=== PATIENT | female | born 1985 | race Caucasian/White ===

== ENCOUNTER 2016-09-06 08:23 | Inpatient (IN) | payer OTHER ==
[~2016-09-06] VITALS: Ht 167.6 cm; Wt 79.4 kg
[~2016-09-06 08:23] MED LIST: ASPI81TA28 PO; ATOR10TA88 PO; CLON1TAB3 PO; FLUT1INH INH; FRS/40 PO; GLC/500 PO; IPRA1AER2 INH; IPRASOL4 INH; MAGN1CAP2 PO; MEDR150I IM; MONT1TAB3 PO; NXM/40 PO; OXYC1TAB3 PO; POTA20TA16 PO; PROM25TA9 PO; QUET1TAB34 PO; SERT-234 PO; TIZA4CAP PO; ZOLP10TA PO
[2016-09-06] MEDS ORDERED: ONDANSETRON INJ 2 MG/ML 2 ML VIAL IV PRN (08:45)
--- NOTE | 2016-09-06 08:50 | EMERGENCY ROOM VISIT NOTE ---
History Report prepared by Katrin: So Ludwig Under the Supervision of: Dr. Sean Diaz M.D. First contact with patient: 08:37 Chief Complaint: ABDOMINAL PAIN Stated Complaint: POSSIBLE PANCREATITIS-SEVERE ABD. PAIN History of Present Illness The patient is a 30 year old female who presents to the Emergency Room with complaints of persistent left upper quadrant abdominal pain that began three days ago. She currently rates her discomfort as a 10/10 in severity. The patient states that she has a history of pancreatitis and states that her pain today feels similar to her previous episodes of pancreatitis. She denies any history of heavy alcohol consumption. The patient states that the first time she had pancreatitis, it was attributed to gallstones. She states that her pain is worsened with eating and movement. The patient additionally associates chills and vomiting, but denies any diarrhea or fever. She notes that she has a pacemaker and additionally notes a history of a cholecystectomy. The patient states that she takes aspirin daily. Source of History: patient Onset: three days ago Position: abdomen (LUQ) Symptom Intensity: 10/10 Timing: other (persistent) Modifying Factors (Worsening): eating, movement Associated Symptoms: + chills, + vomiting, No diarrhea, No fevers Review of Systems All systems have been listed, reviewed, and are negative other than those previously mentioned. Please see Additional Medical History Sheet. Past Medical & Surgical Medical Problems: (1) Anxiety (2) Asthma (3) Bipolar disorder (4) Bronchitis (5) DM type 2 (diabetes mellitus, type 2) (6) Frequent UTI (7) H/O prolonged Q-T interval on ECG (8) H/O sinoatrial node dysfunction (9) History of congenital heart disease (10) history of pacemaker infection (11) History of pulmonary embolism (12) Hypertension (13) Kidney stones (14) Pacemaker (15) Paroxysmal atrial tachycardia (16) Pneumonia Surgical Problems: (1) H/O cone biopsy of cervix (2) History of cardiac cath (3) lower lumbar radiofrequency ablation (4) S/P ablation operation for arrhythmia (5) S/P cardiac catheterization (6) S/P laparoscopic cholecystectomy (7) S/P Mustard operation (8) S/p pacemaker insertion Family History Cancer Diabetes mellitus MOTHER SISTER FH: kidney disease Gallbladder disease Heart disease Hypertension Kidney stones Lung disease Social History Smoking Status: Never Smoker Smokeless Tobacco Use: No Alcohol Use: occasionally Drug Use: none Marital Status: in relationship Housing Status: lives with significant other Occupation Status: disabled Current/Historical Medications Scheduled Aspirin (Aspirin Ec), 81 MG PO DAILY Atorvastatin (Lipitor), 10 MG PO DAILY Clonazepam (Klonopin), 1 MG PO BID Esomeprazole Magnesium (Nexium), 40 MG PO DAILY Fluticasone Furoate-Vilanterol (Breo Ellipta), 1 PUFF INH DAILY Furosemide (Lasix), 20 MG PO DAILY Magnesium Oxide (Mg Supplement (Magnesium), 400 MG PO DAILY Medroxyprogesterone Acetate (C (Depo-Provera Contraceptiv), 1 DOSE IM [id number] Metformin Hcl (Glucophage), 500 MG PO BID Montelukast Sodium (Singulair), 10 MG PO HS Potassium Ext Rel (Klor-Con), 20 MEQ PO BID Quetiapine Fumarate (Seroquel), 100 MG PO HS Sertraline (Zoloft), 50 MG PO DAILY Zolpidem Tartrate (Ambien), 10 MG PO HS Scheduled PRN Ipratropium-Albuterol (Duoneb), 3 ML INH QID PRN for SOB/Wheezing Ipratropium-Albuterol (Combivent Respimat), 2 PUFFS INH QID PRN for SOB/Wheezing Tizanidine (Zanaflex), 4 MG PO TID PRN for PRN Allergies Coded Allergies: Ketorolac Tromethamine (Verified Allergy, Unknown, serotonin syndrome, ) Sulfa Antibiotics (Verified Allergy, Unknown, rash, 09/06/16) Tramadol (Verified Allergy, Unknown, serotonin syndrome, 09/06/16) Eggs or Egg-derived Products (Verified Adverse Reaction, Intermediate, GI SYMPTOMS, 09/06/16) Physical Exam Vital Signs Date Time Temp Pulse Resp B/P Pulse Ox O2 Delivery O2 Flow Rate FiO2 09/06/16 12:00 75 16 120/77 96 Room Air 09/06/16 10:45 60 16 99/63 96 Room Air 09/06/16 09:17 66 97/57 96 Room Air 09/06/16 09:11 97 Room Air 09/06/16 08:27 36.4 81 20 94/61 95 Room Air Physical Exam GENERAL: Patient awake, alert, oriented x 3. Patient follows commands. Patient does not appear toxic. Patient is adequately hydrated and well- nourished. SKIN: No erythema, pallor, cyanosis or rash HEENT: Normal head, pupils equal, reactive to light and accommodation. Mucous membranes are dry. Neck: Without adenopathy, no neck vein distention. CHEST WALL: Midline sternotomy scar. LUNGS: Clear to auscultation. No wheezes, no rales, no rhonchi. HEART: No murmurs. No gallops. No rubs ABDOMEN: Moderate tenderness over the epigastrium. Multiple upper abdominal scars, well healed, No masses, no rebound, no hepatomegaly or splenomegaly. EXTREMITIES: No signs of trauma. No pedal or pretibial edema. No calf or thigh tenderness. NEUROLOGIC: Cranial nerves II-XII within normal limits. No gross motor sensory function deficits. Medical Decision & Procedures ER Provider Diagnostic Interpretation: US results are interpretations by the radiologist and per my review. ABDOMINAL ULTRASOUND, RIGHT UPPER QUADRANT HISTORY: Severe abdominal pain. Pancreatitis. Evaluate for pseudocyst. COMPARISON: CT of the abdomen and pelvis July 04, 2016. FINDINGS: Hepatic echogenicity is increased. No hepatic lesions are identified. There is no biliary ductal dilatation following cholecystectomy. The pancreas is largely obscured due to overlying bowel gas. There is no right hydronephrosis. IMPRESSION: 1. No biliary ductal dilatation status post cholecystectomy. 2. Fatty liver. 3. Largely obscured pancreas. Electronically signed by: Jimmy Payton M.D. 09/06/2016 10:28 AM Dictated Date/Time: 09/06/2016 10:23 AM Laboratory Results 09/06/16 09:07 Red Blood Count 4.85, Mean Corpuscular Volume 79.6, Mean Corpuscular Hemoglobin 27.6, Mean Corpuscular Hemoglobin Concent 34.7, Mean Platelet Volume 9.8, Neutrophils (%) (Auto) 58.1, Lymphocytes (%) (Auto) 31.5, Monocytes (%) (Auto) 8.2, Eosinophils (%) (Auto) 1.5, Basophils (%) (Auto) 0.4, Neutrophils # (Auto) 5.91, Lymphocytes # (Auto) 3.20, Monocytes # (Auto) 0.83, Eosinophils # (Auto) 0.15, Basophils # (Auto) 0.04 09/06/16 09:07 Test 09/06/16 09:07 White Blood Count 10.16 K/uL (4.8-10.8) Red Blood Count 4.85 M/uL (4.2-5.4) Hemoglobin 13.4 g/dL (12.0-16.0) Hematocrit 38.6 % (37-47) Mean Corpuscular Volume 79.6 fL (80-100) Mean Corpuscular Hemoglobin 27.6 pg (25-34) Mean Corpuscular Hemoglobin Concent 34.7 g/dl (32-36) Platelet Count 282 K/uL (130-400) Mean Platelet Volume 9.8 fL (7.4-10.4) Neutrophils (%) (Auto) 58.1 % Lymphocytes (%) (Auto) 31.5 % Monocytes (%) (Auto) 8.2 % Eosinophils (%) (Auto) 1.5 % Basophils (%) (Auto) 0.4 % Neutrophils # (Auto) 5.91 K/uL (1.4-6.5) Lymphocytes # (Auto) 3.20 K/uL (1.2-3.4) Monocytes # (Auto) 0.83 K/uL (0.11-0.59) Eosinophils # (Auto) 0.15 K/uL (0-0.5) Basophils # (Auto) 0.04 K/uL (0-0.2) RDW Standard Deviation 48.4 fL (36.4-46.3) RDW Coefficient of Variation 16.7 % (11.5-14.5) Immature Granulocyte % (Auto) 0.3 % Immature Granulocyte # (Auto) 0.03 K/uL (0.00-0.02) Prothrombin Time 11.1 SECONDS (9.0-12.0) Prothromb Time International Ratio 1.0 (0.9-1.1) Activated Partial Thromboplast Time 25.4 SECONDS (21.0-31.0) Partial Thromboplastin Ratio 1.0 Anion Gap 16.0 mmol/L (3-11) Est Creatinine Clear Calc Drug Dose 93.8 ml/min Estimated GFR () 96.8 Estimated GFR (Non- 83.5 BUN/Creatinine Ratio 6.9 (10-20) Calcium Level 8.9 mg/dl (8.5-10.1) Total Bilirubin 0.3 mg/dl (0.2-1) Aspartate Amino Transf (AST/SGOT) 47 U/L (15-37) Alanine Aminotransferase (ALT/SGPT) 50 U/L (12-78) Alkaline Phosphatase 131 U/L (45-117) Total Protein 7.8 gm/dl (6.4-8.2) Albumin 4.2 gm/dl (3.4-5.0) Globulin 3.6 gm/dl (2.5-4.0) Albumin/Globulin Ratio 1.2 (0.9-2) Lipase 7709 U/L (73-393) Laboratory results as stated above per my review. Medications Administered Medications (Trade) Dose Ordered Sig/Veronica Route Start Time Stop Time Status Last Admin Dose Admin Hydromorphone HCl (Dilaudid Inj) 1 mg Q1HWA PRN IV 09/06/16 08:45 09/20/16 08:44 09/06/16 12:41 1 MG Ondansetron HCl 4 mg 4 mg Q1HWA PRN IV 09/06/16 08:45 10/06/16 08:44 09/06/16 09:13 4 MG Sodium Chloride (Nss 1000ml) 1,000 ml @ 1,000 mls/hr Q1H ONCE IV 09/06/16 09:30 09/06/16 10:29 DC 09/06/16 09:19 1,000 MLS/HR ED Course 0838: Past medical records reviewed. The patient was evaluated in room B11B. A complete history and physical examination was performed. 0845: Ordered Zofran Inj 4 mg IV, Dilaudid Inj 1 mg IV. 0930: Ordered Sodium Chloride 1000 ml @ 1000 mls/hr IV. 1110: I reevaluated the patient and she is still in pain. I discussed the exam findings with her and I discussed the treatment plan. She verbalized complete understanding and agreement She will be evaluated for further treatment. 1129: I discussed the patients case with Patrica Olmos. She is going to evaluate the patient for further treatment Medical Decision Nurses notes reviewed. Medical history sheet reviewed. Differential diagnosis includes but is not limited to: pancreatis, small bowel obstruction, pneumonia, pneumothorax, ectopic , appendicitis, peptic ulcer disease, gastroenteritis, dehydration, metabolic disorder. Multiple labs and imaging were performed. The patient's lipase is significantly elevated. The patient was given IV fluids and pain medication. Patient did improve but will require further evaluation in the hospital. I discussed care with the patient and with the hospitalist. Consults Time Called: 1117 Consulting Physician: Patrica Olmos Returned Call: [phone] I discussed the patients case with Patrica Olmos. She is going to evaluate the patient for further treatment Impression Primary Impression: Pancreatitis Additional Impression: Hypokalemia Scribe Attestation The scribe's documentation has been prepared under my direction and personally reviewed by me in its entirety. I confirm that the note above accurately reflects all work, treatment, procedures, and medical decision making performed by me. Departure Information Dispostion Being Evaluated By Hospitalist Prescriptions Sertraline (Zoloft) 100 Mg Tab 50 MG PO DAILY, #30 Prov: Yan Hanson MD 09/06/16 Clonazepam (Klonopin) 1 Mg Tab 1 MG PO BID, #30 Prov: Yan Hanson MD 09/06/16 Referrals Geovani Grace M.D. (PCP) Problem Qualifiers
[2016-09-06] MEDS ORDERED: MEDR150I IM (09:06)
[2016-09-06 09:14] LABS: BASO % 0.4 %; BASO ABS # 0.04 K/uL (0-0.2); COMPLETE YES; EOS % 1.5 %; HEMATOCRIT 38.6 % (37-47); IG% 0.3 %; LYMPH % 31.5 %; MEAN CELL VOLUME 79.6 fL (80-100); MEAN CORPUSCULAR HEMOGLOBIN 27.6 pg (25-34); MEAN CORPUSCULAR HGB CONC 34.7 g/dl (32-36); MEAN PLATELET VOLUME 9.8 fL (7.4-10.4); MONO % 8.2 %; NEUT % 58.1 %; PLATELET COUNT 282 K/uL (130-400); RED BLOOD COUNT 4.85 M/uL (4.2-5.4); WHITE BLOOD COUNT 10.16 K/uL (4.8-10.8)
[2016-09-06] MEDS: HYDROmorphone INJ 1 MG/ML SYR IV PRN ×6 (09:14→23:28)
[2016-09-06] MEDS ORDERED: SODIUM CHLORIDE 0.9% 1000ML 1,000 ML IV ONE (09:30)
[2016-09-06 09:33] LABS: BUN/CREATININE RATIO 6.9 (10-20); CALCIUM 8.9 mg/dl (8.5-10.1); CREATININE 0.91 mg/dl (0.60-1.20); POTASSIUM 2.8 mmol/L (3.5-5.1)
[2016-09-06 09:35] LABS: ALB/GLOB RATIO 1.2 (0.9-2); PROTHROMBIN TIME (PATIENT) 11.1 SECONDS (9.0-12.0)
--- NOTE | 2016-09-06 10:29 | DIAGNOSTIC IMAGING REPORT ---
ABDOMINAL ULTRASOUND, RIGHT UPPER QUADRANT HISTORY: Severe abdominal pain. Pancreatitis. Evaluate for pseudocyst. COMPARISON: CT of the abdomen and pelvis July 04, 2016. FINDINGS: Hepatic echogenicity is increased. No hepatic lesions are identified. There is no biliary ductal dilatation following cholecystectomy. The pancreas is largely obscured due to overlying bowel gas. There is no right hydronephrosis. IMPRESSION: 1. No biliary ductal dilatation status post cholecystectomy. 2. Fatty liver. 3. Largely obscured pancreas. Electronically signed by: Jimmy Payton M.D. 09/06/2016 10:28 AM Dictated Date/Time: 09/06/2016 10:23 AM
[2016-09-06] MEDS ORDERED: POTASSIUM CHLR 20 MEQ / WTR 40 MEQ in PREMIXED WATER 100 ML IV STA (12:10)
[2016-09-06] MEDS ORDERED: CLON1TAB3 PO (12:12)
[2016-09-06] MEDS ORDERED: SERT-234 PO (12:12)
[2016-09-06] MEDS ORDERED: IPRATROPIUM BROMIDE/ALBUTEROL respimat INH INH PRN (12:15)
[2016-09-06] MEDS ORDERED: ALBUT/IPRATROP 3MG/0.5MG NEB 3 ML VIAL INH PRN (12:15)
[2016-09-06] MEDS ORDERED: ALUMINUM/MAGNESIUM/SIMETH (MAALOX MAX) 30 ML UDC PO PRN (12:15)
[2016-09-06] MEDS ORDERED: ACETAMINOPHEN 325 MG TAB PO PRN (12:15)
[2016-09-06] MEDS ORDERED: LACTATED RINGER'S 1000ML 1,000 ML IV SCH (12:15)
[2016-09-06] MEDS ORDERED: OPTIRAY 320 IV PRN (12:45)
[2016-09-06] MEDS ORDERED: POTASSIUM CHLORIDE 10 MEQ TABCR PO ONE (13:00)
--- NOTE | 2016-09-06 13:33 | DIAGNOSTIC IMAGING REPORT ---
CT OF THE ABDOMEN AND PELVIS WITH CONTRAST CLINICAL HISTORY: Pancreatitis. Severe abdominal pain. COMPARISON STUDY: CT of the abdomen and pelvis July 04, 2016 and abdominal ultrasound performed earlier today. TECHNIQUE: Following IV administration of 118 mL of Optiray-320, axial images of the abdomen and pelvis were obtained from the lung bases to the proximal femurs. Images were reviewed in the axial, sagittal, and coronal planes. IV contrast was administered without complication. CT DOSE: 540.71 mGy.cm FINDINGS: Congenital anomalies within the heart are partially imaged on this exam. There are median sternotomy wires and epicardial pacer leads as well as post surgical findings within the heart. There is marked fatty infiltration of the liver. Moderate peripancreatic infiltration and fluid is noted which extends into the anterior pararenal spaces and the mesentery. The pancreas enhances homogeneously. There are no peripancreatic fluid collections. The main, left and right portal veins are patent. The splenic vein is patent. No pseudoaneurysm is identified on this non-CTA exam. There is no biliary or pancreatic ductal dilatation status post cholecystectomy. There is no evidence for a bowel obstruction. The caliber and wall thickness of small and large bowel are normal. There is trace fluid within the pelvis. Multiple compression deformities within the thoracic spine and lumbar spine are likely old. There is subtle sclerosis within the right femoral head. The spleen, adrenal glands and kidneys are normal. IMPRESSION: 1. Moderate peripancreatic infiltration and fluid consistent with acute pancreatitis. No evidence of pancreatic necrosis. No peripancreatic fluid collections. 2. Marked fatty infiltration of the liver. 3. No biliary ductal dilatation status post cholecystectomy. 4. 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 Electronically signed by: Jimmy Payton M.D. 09/06/2016 1:32 PM Dictated Date/Time: 09/06/2016 1:21 PM
[2016-09-06] MEDS: POTASSIUM CHLORIDE 10 MEQ / 100ML WTR IV SCH ×2 (14:00→17:21)
[2016-09-06 14:12] LABS: MANUAL MICROSCOPIC REQUIRED? NO; REVIEW REQ? NO; URINE APPEARANCE TURBID (CLEAR); URINE BILIRUBIN NEG (NEG); URINE COLOR YELLOW; URINE EPITHELIAL CELL AUTO >30 /lpf (0-5); URINE NITRITE NEG (NEG); URINE SPECIFIC GRAVITY > 1.045 (1.000-1.030); UROBILINOGEN NEG (NEG); ZZUR CULT IF INDIC CLEAN CATCH NO
[2016-09-06 14:45] VITALS: BP 121/78; PULSE 86; TEMP 36.5
[2016-09-06] MEDS ORDERED: DEXTROSE 50% 50 ML SYR IV PRN (15:30)
[2016-09-06] MEDS ORDERED: GLUCAGON FOR INJ 1 MG VIAL SQ PRN (15:30)
[2016-09-06] MEDS ORDERED: GLUCOSE 10 TABS/TUBE PO PRN (15:30)
[2016-09-06] MEDS ORDERED: CLONAZEPAM 1 MG TAB PO ONE (15:30)
[2016-09-06] MEDS ORDERED: GLUCOSE 40% GEL 15 GM TUBE PO PRN (15:30)
[2016-09-06 16:10] VITALS: O2SAT 96
[2016-09-06] MEDS: NSS + 20MEQ KCL 1000ML 1,000 ML IV SCH ×2 (16:48→23:28)
[2016-09-06] MEDS ORDERED: NURSING VERBAL MED ORDER ONE (17:00)
[2016-09-06] MEDS ORDERED: HydrALAZINE HCL 20 MG/ML VIAL IV. ONE (17:00)
[2016-09-06] MEDS ORDERED: HYDROmorphone INJ 0.5 MG/0.5 ML SYR IV ONE (17:15)
[2016-09-06] MEDS: INSULIN ASPART 100 UNITS/ML 3 ML PEN SC SCH (18:56)
[2016-09-06] MEDS: ONDANSETRON INJ 2 MG/ML 2 ML VIAL IV PRN (20:12)
[2016-09-06] MEDS ORDERED: HYDROmorphone INJ 1 MG/ML SYR IV ONE (21:00)
[2016-09-06] MEDS ORDERED: POTASSIUM CHLORIDE 20 MEQ TABCR PO SCH (21:00)
[2016-09-06] MEDS: MONTELUKAST SOD 10 MG TAB PO SCH (21:03)
[2016-09-06] MEDS: ZOLPIDEM TARTRATE 10 MG TAB PO SCH (21:03)
[2016-09-06] MEDS: CLONAZEPAM 1 MG TAB PO SCH (21:03)
[2016-09-06] MEDS: HEPARIN SOD 5000 UNIT/0.5 ML CARP SQ SCH (21:12)
--- NOTE | 2016-09-06 21:13 | HISTORY & PHYSICAL EXAMINATION ---
DATE OF ADMISSION: 09/06/2016 CHIEF COMPLAINT: Abdominal pain. 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 The patient says since last 2 days, she was having abdominal pain, but today morning it got worse, very severe in nature, radiating to back associated with nausea and decided to come to the ER and found to have lipase to be elevated. She is requiring significant pain medications. Currently, pain is under control with pain medication and resting comfortably and hemodynamically stable. Says has some mild pain radiating into lower chest. Denies any shortness of breath, has some dry cough, thinks maybe she has some low-grade fever, no chills, no headaches, no blurred vision, no diarrhea. Normal bladder movements.RECENTLY HAD ALL TOOTH EXTRACTED SECONDARY TO RISK OF ENDOCARDITIS. ALLERGIES: DOXEPIN, SULFONYLUREAS, TRAMADOL. PAST MEDICAL HISTORY: As mentioned above. PAST SURGICAL HISTORY: Ablation of the heart for SVT, cardiac heart catheterizations, right and left heart catheterization for congenital anomalies, dilatation and curettage for cervical dysplasia, epicardial electrode insertions, status post pacemaker by thoracotomy, replacement pacemaker generator, laparoscopic cholecystectomy, stent insertion main pulmonary artery, reconstruction of ankle joint, ICD pocket revision, 1 lead extraction of the pacemaker, repair of the great vessel transposition in 1984, all tooth extraction. MEDICATIONS: The patient is on Tessalon Perles 2 capsules p.o. t.i.d. p.r.n. cough, Ambien 10 mg p.o. daily at bedtime, Zanaflex 4 mg p.o. every 8 hours p.r.n., Combivent 2 puffs 4 times daily as needed, Brio Ellipta 1 puff daily, montelukast 10 mg p.o. daily, metformin 500 mg p.o. b.i.d., Depo-Provera every 3 months injection, magnesium oxide 400 mg p.o. daily, Klonopin 1 mg p.o. t.i.d. p.r.n., Zoloft 50 mg p.o. daily, Nexium 40 mg p.o. daily, atorvastatin 10 mg p.o. daily, Seroquel 100 mg p.o. at bedtime, Lasix 40 mg one day and 20 mg next day, potassium chloride 40 mg p.o. daily, DuoNeb 3 mL via nebulization 4 times a day, aspirin 81 mg p.o. daily. FAMILY HISTORY: Significant for father had depression, asthma, diabetes. Mother had thyroid disorder, diabetes. Sister has arthritis, asthma, diabetes. SOCIAL HISTORY: Former smoker, quit in 2014, smoked half pack a day for 10 years. Alcohol occasional. No drug use. Currently lives with his family. REVIEW OF SYMPTOMS: As per HPI. Rest of review of symptoms negative. PHYSICAL EXAMINATION: GENERAL: The patient is of moderate build, not in distress. VITAL SIGNS: Temperature 36.4, pulse 75, respiratory rate 16, blood pressure 120/77, oxygen 96% room air. HEAD, EYES, EARS, NOSE, AND THROAT: No pallor, no icterus. Pupils equal, round, and reactive to light. NECK: No JVD, no neck masses, no carotid bruits. CARDIOVASCULAR: S1, S2 heard, regular rate and rhythm, no murmur, no gallop. RESPIRATORY SYSTEM: Clear to auscultation bilaterally. No wheezing, no crackles. ABDOMEN: Soft. Tenderness in the epigastric region, some mild guarding, no rigidity. No distention. CENTRAL NERVOUS SYSTEM: Cranial nerves II-XII grossly intact. Nonfocal. EXTREMITIES: No edema. LABORATORY DATA: WBC 10, hemoglobin 13.4, hematocrit 38.6, platelets 282. Sodium 138, potassium 2.8, chloride 104, bicarbonate 18, BUN 16, CO2 18, BUN 6, creatinine 0.9, serum glucose 210, calcium 8.9, total bilirubin 0.8, AST 47, ALT 50, alkaline phosphatase 131, total protein 37.8, lipase 7,709. PT 11.1, INR 1, ABG 25.4, pancreatic ulcer found, largely obscured pancreas. No biliary ductal dilatation, status post cholecystectomy. ASSESSMENT AND PLAN: This is a 30-year-old female who presents with pancreatitis. 1. This is a 30-year-old female with past medical history significant for congenital heart disease, status post repair, sinoatrial node dysfunction status post pacemaker, pulmonary artery stent placement and status post ablation for SVT, bipolar disorder, generalized anxiety disorder, history of tobacco abuse, history of diabetes type 2, history of prolonged QT interval, history of pancreatitis in the past secondary to gallstone status post cholecystectomy who presents with abdominal pain. 2. Abdominal pain and lipase elevated, most likely acute pancreatitis, though pancreatic ultrasound did not show any dilatation of the common bile duct and pancreas was obscured on imaging study, HAS history of pancreatitis secondary to gallstones in the past status post cholecystectomy. We cannot do MRCP secondary to pacemaker. We will do CT abdomen and pelvis with contrast, place her n.p.o. except meds and aggressive fluids, IV pain medications, IV antiemetics. Follow the lipase levels and consult GI for further recommendations. 3. History of right-sided heart failure, most likely secondary to her congenital heart disease. We will hold Lasix because of the pancreatitis, 4. Hypokalemia. We will replace the potassium. 5. Diabetes. The patient says recently all her tooth were because of her heart disease and risk of endocarditis. And since she is only eating a soft diet and not following her regular diet .will check HbA1c levels . insulin sliding scale for now and hold the metformin. 6. History of bipolar disorder and generalized anxiety disorder. The patient is on Zoloft, which we will continue. We will continue Klonopin, but patient says that she read seroquel can cause pancreatitis and she wanted to hold it, will hold the Seroquel for now. We will monitor. 7. History of prolonged QT interval. We will get an EKG and avoid QT prolonging drugs. 8. History of gastroesophageal reflux disease. Will place on IV Protonix for now. 9. History of hyperlipidemia. holding Lipitor. 10. Deep venous thrombosis prophylaxis. SCDs and heparin subQ. 11. Disposition. Admission to medical floor. Expect to discharge home and follow with family doctor. LEVEL 1 FULL CODE. MTDD
[2016-09-06] MEDS: OXYCODONE/ACETAMINOPHEN 5-325 TAB PO PRN (22:26)
[2016-09-06] MEDS ORDERED: POTASSIUM CHLORIDE 20 MEQ TABCR PO ONE (22:30)
[2016-09-06 23:57] LABS: POTASSIUM 3.8 mmol/L (3.5-5.1)
[2016-09-06 23:58] LABS: MAGNESIUM 1.7 mg/dl (1.8-2.4)
[2016-09-07 00:09] VITALS: BP 142/85; PULSE 95; TEMP 37; O2SAT 92
[2016-09-07] MEDS: INSULIN ASPART 100 UNITS/ML 3 ML PEN SC SCH ×4 (00:23→18:00)
[2016-09-07] MEDS: HYDROmorphone INJ 1 MG/ML SYR IV PRN ×9 (01:34→21:39)
[2016-09-07] MEDS: OXYCODONE/ACETAMINOPHEN 5-325 TAB PO PRN ×3 (04:38→16:28)
[2016-09-07] MEDS: ONDANSETRON INJ 2 MG/ML 2 ML VIAL IV PRN ×2 (05:05→18:31)
[2016-09-07] MEDS: NSS + 20MEQ KCL 1000ML 1,000 ML IV SCH ×2 (05:13→11:22)
[2016-09-07 06:35] LABS: BASO % 0.2 %; BASO ABS # 0.02 K/uL (0-0.2); COMPLETE YES; EOS % 0.1 %; HEMATOCRIT 35.4 % (37-47); IG% 0.3 %; LYMPH % 12.5 %; LYMPH ABS # 1.49 K/uL (1.2-3.4); MEAN CELL VOLUME 81.2 fL (80-100); MEAN CORPUSCULAR HEMOGLOBIN 27.1 pg (25-34); MEAN CORPUSCULAR HGB CONC 33.3 g/dl (32-36); MEAN PLATELET VOLUME 9.8 fL (7.4-10.4); MONO % 6.6 %; NEUT % 80.3 %; PLATELET COUNT 282 K/uL (130-400); RED BLOOD COUNT 4.36 M/uL (4.2-5.4); WHITE BLOOD COUNT 11.89 K/uL (4.8-10.8)
[2016-09-07 07:04] LABS: BUN/CREATININE RATIO 7.1 (10-20); CALCIUM 8.6 mg/dl (8.5-10.1); CREATININE 0.75 mg/dl (0.60-1.20); MAGNESIUM 1.8 mg/dl (1.8-2.4); POTASSIUM 3.7 mmol/L (3.5-5.1)
[2016-09-07] MEDS: PROMETHAZINE HCL INJ 12.5 MG in SODIUM CHLORIDE 0.9% 50ML 50 ML IV PRN ×2 (08:55→16:05)
[2016-09-07] MEDS: SERTRALINE HCL 50 MG TAB PO SCH (08:56)
[2016-09-07] MEDS: MAGNESIUM OXIDE 400 MG TAB PO SCH (08:56)
[2016-09-07] MEDS: CLONAZEPAM 1 MG TAB PO SCH ×3 (08:56→20:29)
[2016-09-07] MEDS ORDERED: NON-FORMULARY MEDICATION (Fluticasone Furoate-Vilanterol (Breo Ellipta) 1 PUFF) INH SCH (09:00)
[2016-09-07] MEDS: HEPARIN SOD 5000 UNIT/0.5 ML CARP SQ SCH (09:04)
[2016-09-07 09:32] VITALS: BP 162/105; PULSE 111; TEMP 36.5; O2SAT 93
[2016-09-07] MEDS: PANTOprazole INJ 40 MG in SYRINGE 0 ML IV SCH (10:28)
[2016-09-07 11:31] VITALS: BP 125/63; PULSE 111
--- NOTE | 2016-09-07 12:06 | Gastrointestinal Consultation ---
Gastrointestinal Consultation Date of Consultation: Sep 07, 2016 Attending Physician: Dr. Hanson Consulting Physician: Dr. Lynne Reason for Consultation: pancreatitis History of Present Illness Patient is a 30 year old female with a complicated history of congenital heart disease s/p repain including PPM, DM, bipolar disorder and history of gallstone pancreatitis s/p cholecystectomy in 2010 who presented to the ER with nausea, vomiting and generalized abdominal pain. She has not had any problems with pancreatitis since GB removed, until 2 days ago. She drinks 1-2 beers about once a month. Had 1 beer on . Lipase on admission was 8000 with normal ALT, AST, TB. Alk phos was was very mildly elevated at 130. CT showed changes of acute pancreatitis. RUQ US showed normal sized ducts and fatty liver. She is NPO on IVF and PRN anti-emetics and analgesia. Pain is mildly better but still present. No nausea or vomiting today. No BM x 2-3 days. Past Medical/Surgical History Medical Problems: (1) Hypokalemia Status: Acute (2) Left flank pain Status: Acute (3) Non-cardiac chest pain Status: Acute (4) Non-cardiac chest pain Status: Acute (5) Pacemaker malfunction Status: Acute (6) Pancreatitis Status: Acute (7) Precordial chest pain Status: Acute (8) Pyelonephritis Status: Acute (9) Shortness of breath Status: Acute (10) Transaminitis Status: Acute (11) Upper respiratory infection Status: Acute Past Medical History: as noted in HPI Past Surgical History: as noted in HPI Family History Cancer Diabetes mellitus MOTHER SISTER FH: kidney disease Gallbladder disease Heart disease Hypertension Kidney stones Lung disease non-contributory Social History Smoking Status: Former Smoker Alcohol Use: occasionally Drug Use: none Marital Status: in relationship Housing Status: lives with significant other Occupation Status: disabled Allergies Coded Allergies: Ketorolac Tromethamine (Verified Allergy, Unknown, serotonin syndrome, ) Sulfa Antibiotics (Verified Allergy, Unknown, rash, 09/06/16) Tramadol (Verified Allergy, Unknown, serotonin syndrome, 09/06/16) Eggs or Egg-derived Products (Verified Adverse Reaction, Intermediate, GI SYMPTOMS, 09/06/16) Current Medications Home Meds and Scripts Medications Dose Route/Sig Max Daily Dose Days Date Category Dose Instructions Zoloft (Sertraline HCl) 100 Mg Tab 50 Mg PO DAILY 09/06/16 Rx Klonopin (Clonazepam) 1 Mg Tab 1 Mg PO BID 09/06/16 Rx Depo-Provera Contraceptiv (Medroxyprogesterone Acetate (C) 150 Mg/Ml Inj 1 Dose IM [id number] 09/06/16 Reported Combivent Respimat (Ipratropium-Albuterol) 1 Aer Aer 2 Puffs INH QID PRN 07/04/16 Reported Klor-Con (Potassium Chloride) 20 Meq Tabcr 20 Meq PO BID 30 12/09/15 Rx Lasix (Furosemide) 40 Mg Tab 20 Mg PO DAILY 30 12/09/15 Rx TAKE LASIX 20 MG DAILY WITH 40 MG PO DAILY EVERY OTHER DAY Seroquel (Quetiapine Fumarate) 100 Mg Tab 100 Mg PO HS 12/07/15 Reported Duoneb (Ipratropium-Albuterol) 3 Ml Nebu 3 Ml INH QID PRN 10/23/15 Reported Breo Ellipta (Fluticasone Furoate-Vilanterol) 1 Inh Inh 1 Puff INH DAILY 10/23/15 Reported Magnesium (Magnesium Oxide (Mg Supplement) 400 Mg Cap 400 Mg PO DAILY 09/05/15 Reported Singulair (Montelukast Sodium) 10 Mg Tab 10 Mg PO HS 08/30/15 Reported Glucophage (Metformin Hcl) 500 Mg Tab 500 Mg PO BID 08/14/15 Reported Nexium (Esomeprazole Magnesium) 40 Mg Cap 40 Mg PO DAILY 05/21/15 Reported Ambien (Zolpidem Tartrate) 10 Mg Tab 10 Mg PO HS 05/20/15 Reported Zanaflex (Tizanidine HCl) 4 Mg Cap 4 Mg PO TID PRN 05/20/15 Reported Aspirin Ec (Aspirin) 81 Mg Tab 81 Mg PO DAILY 05/20/15 Reported Lipitor (Atorvastatin Calcium) 10 Mg Tab 10 Mg PO DAILY 05/20/15 Reported Review of Systems 12 systems reviewed and negative except as noted Physical Exam Date Time Temp Pulse Resp B/P Pulse Ox O2 Delivery O2 Flow Rate FiO2 09/07/16 11:31 111 125/63 09/07/16 09:32 36.5 111 16 162/105 93 Room Air 09/07/16 08:00 Room Air 09/07/16 00:09 37.0 95 18 142/85 92 Room Air 09/06/16 23:30 Room Air 09/06/16 16:10 96 Room Air 09/06/16 14:45 36.5 86 18 121/78 Room Air 09/06/16 14:01 88 16 131/76 96 09/06/16 13:00 93 16 127/79 95 Room Air 09/06/16 12:00 75 16 120/77 96 Room Air General Appearance: WD/WN, no apparent distress Eyes: normal inspection, PERRL ENT: normal ENT inspection, hearing grossly normal, pharynx normal Neck: supple, no adenopathy, no JVD Respiratory/Chest: chest non-tender, lungs clear, normal breath sounds, no respiratory distress, no accessory muscle use Cardiovascular: regular rate, rhythm, no murmur Abdomen: normal bowel sounds, soft, + tenderness Extremities: normal range of motion, non-tender Neurologic/Psych: stitch bonding machine tender II-XII nml as tested, no motor/sensory deficits, alert, normal mood/affect, oriented x 3 Skin: normal color, no jaundice, warm/dry, no rash Laboratory Results Last 24 Hours Test 09/06/16 14:01 09/06/16 14:38 09/06/16 18:48 09/06/16 22:24 Urine Color YELLOW Urine Appearance TURBID Urine pH 7.0 Urine Specific [place] > 1.045 Urine Protein TRACE Urine Glucose (UA) 1+ Urine Ketones NEG Urine Occult Blood NEG Urine Nitrite NEG Urine Bilirubin NEG Urine Urobilinogen NEG Urine Leukocyte Esterase TRACE Urine WBC (Auto) 1-5 /hpf Urine RBC (Auto) 0-4 /hpf Urine Hyaline Casts (Auto) 0 /lpf Urine Epithelial Cells (Auto) >30 /lpf Urine Bacteria (Auto) NEG Bedside Glucose 164 mg/dl 189 mg/dl Potassium Level 3.8 mmol/L Magnesium Level 1.7 mg/dl Test 09/06/16 23:47 09/07/16 05:57 09/07/16 06:00 Bedside Glucose 163 mg/dl 172 mg/dl White Blood Count 11.89 K/uL Red Blood Count 4.36 M/uL Hemoglobin 11.8 g/dL Hematocrit 35.4 % Mean Corpuscular Volume 81.2 fL Mean Corpuscular Hemoglobin 27.1 pg Mean Corpuscular Hemoglobin Concent 33.3 g/dl Platelet Count 282 K/uL Mean Platelet Volume 9.8 fL Neutrophils (%) (Auto) 80.3 % Lymphocytes (%) (Auto) 12.5 % Monocytes (%) (Auto) 6.6 % Eosinophils (%) (Auto) 0.1 % Basophils (%) (Auto) 0.2 % Neutrophils # (Auto) 9.56 K/uL Lymphocytes # (Auto) 1.49 K/uL Monocytes # (Auto) 0.78 K/uL Eosinophils # (Auto) 0.01 K/uL Basophils # (Auto) 0.02 K/uL RDW Standard Deviation 51.3 fL RDW Coefficient of Variation 17.1 % Immature Granulocyte % (Auto) 0.3 % Immature Granulocyte # (Auto) 0.03 K/uL Sodium Level 144 mmol/L Potassium Level 3.7 mmol/L Chloride Level 111 mmol/L Carbon Dioxide Level 19 mmol/L Anion Gap 14.0 mmol/L Blood Urea Nitrogen 5 mg/dl Creatinine 0.75 mg/dl Est Creatinine Clear Calc Drug Dose 113.8 ml/min Estimated GFR () 122.2 Estimated GFR (Non- 105.5 BUN/Creatinine Ratio 7.1 Random Glucose 178 mg/dl Calcium Level 8.6 mg/dl Magnesium Level 1.8 mg/dl Total Bilirubin 0.5 mg/dl Direct Bilirubin 0.1 mg/dl Aspartate Amino Transf (AST/SGOT) 33 U/L Alanine Aminotransferase (ALT/SGPT) 41 U/L Alkaline Phosphatase 123 U/L Total Protein 7.3 gm/dl Albumin 4.0 gm/dl Lipase 3250 U/L Impression Patient is a 30 year old female with a history of gallstone pancreatitis in 2010 s/p cholecystectomy admitted with acute pancreatitis. No significant ETOH. LFTs essentially normal. She may have passed a stone. Plan Continue with consrvative management with NPO, INF, anti-emetics, and analgesia. She can not have MRCP secondary to PPM. May need outpatient EUS once she recovers from this acute episode +/- ERCP.
[2016-09-07 16:13] VITALS: BP 149/85; PULSE 129; TEMP 37.1; O2SAT 90
[2016-09-07 16:20] VITALS: O2SAT 96
[2016-09-07] MEDS: SODIUM CHLORIDE 0.9% 1000ML 1,000 ML IV SCH ×2 (17:08→20:32)
[2016-09-07] MEDS: ZOLPIDEM TARTRATE 10 MG TAB PO SCH (20:30)
[2016-09-07] MEDS: MONTELUKAST SOD 10 MG TAB PO SCH (20:30)
--- NOTE | 2016-09-07 20:30 | Progress Note ---
Internal Med Progress Note Date of Service: Sep 07, 2016. Provider Documentation: SUBJECTIVE: abdominal pain has improved has mil nausea no fever or chills OBJECTIVE: Vital Signs-as noted below Exam: General-no sign of distress Eyes-sclera non icteric ENT-dry oral mucosa Neck-no thyromegaly Lungs-CTA Heart-regular S1/S2 Abdomen-+ epigastric tenderness Extremities-no lower ext edema Neuro-no focal deficit Lab data as noted below. ASSESSMENT & PLAN: ACUTE PANCREATITIS : History of gallstone pancreatitis in 2010 s/p cholecystectomy admitted with acute pancreatitis. Lipase level 7 000-> improved to 300o with IVF No significant hx of ETOH. LFTs essentially normal. appreciate GI eval MRCP could not be done ( pt has pacemaker ) recommends cont supportive care with NPO , sips of water , ice cips IV hydration pain control follow lipase level till normalized gradual advance diet as tolerated will need out pt GI eval for EUS and possible ERCP if retained gall stone / sludge seen in biliary duct HX OF CONGENITAL HEART DISEASE : s/p surgical correction sick sinus syndrome with AV shannan dilatation s/p Permanent pacemaker placement FULL CODE DVT PROPHYLAXIS scd and teds ambulate DISPOSITION discharge home when medically stable Vital Signs: Date Time Temp Pulse Resp B/P Pulse Ox O2 Delivery O2 Flow Rate FiO2 09/07/16 16:13 37.1 129 16 149/85 90 Room Air 09/07/16 11:31 111 125/63 09/07/16 09:32 36.5 111 16 162/105 93 Room Air 09/07/16 08:00 Room Air 09/07/16 00:09 37.0 95 18 142/85 92 Room Air 09/06/16 23:30 Room Air Lab Results: Results Past 24 Hours Test 09/06/16 22:24 09/06/16 23:47 09/07/16 05:57 09/07/16 06:00 Range/Units Potassium Level 3.8 3.7 3.5-5.1 mmol/L Magnesium Level 1.7 1.8 1.8-2.4 mg/dl Bedside Glucose 163 172 70-90 mg/dl White Blood Count 11.89 4.8-10.8 K/uL Red Blood Count 4.36 4.2-5.4 M/uL Hemoglobin 11.8 12.0-16.0 g/dL Hematocrit 35.4 37-47 % Mean Corpuscular Volume 81.2 80-100 fL Mean Corpuscular Hemoglobin 27.1 25-34 pg Mean Corpuscular Hemoglobin Concent 33.3 32-36 g/dl Platelet Count 282 130-400 K/uL Mean Platelet Volume 9.8 7.4-10.4 fL Neutrophils (%) (Auto) 80.3 % Lymphocytes (%) (Auto) 12.5 % Monocytes (%) (Auto) 6.6 % Eosinophils (%) (Auto) 0.1 % Basophils (%) (Auto) 0.2 % Neutrophils # (Auto) 9.56 1.4-6.5 K/uL Lymphocytes # (Auto) 1.49 1.2-3.4 K/uL Monocytes # (Auto) 0.78 0.11-0.59 K/uL Eosinophils # (Auto) 0.01 0-0.5 K/uL Basophils # (Auto) 0.02 0-0.2 K/uL RDW Standard Deviation 51.3 36.4-46.3 fL RDW Coefficient of Variation 17.1 11.5-14.5 % Immature Granulocyte % (Auto) 0.3 % Immature Granulocyte # (Auto) 0.03 0.00-0.02 K/uL Sodium Level 144 136-145 mmol/L Chloride Level 111 98-107 mmol/L Carbon Dioxide Level 19 21-32 mmol/L Anion Gap 14.0 3-11 mmol/L Blood Urea Nitrogen 5 7-18 mg/dl Creatinine 0.75 0.60-1.20 mg/dl Est Creatinine Clear Calc Drug Dose 113.8 ml/min Estimated GFR () 122.2 Estimated GFR (Non- 105.5 BUN/Creatinine Ratio 7.1 10-20 Random Glucose 178 70-99 mg/dl Calcium Level 8.6 8.5-10.1 mg/dl Total Bilirubin 0.5 0.2-1 mg/dl Direct Bilirubin 0.1 0-0.2 mg/dl Aspartate Amino Transf (AST/SGOT) 33 15-37 U/L Alanine Aminotransferase (ALT/SGPT) 41 12-78 U/L Alkaline Phosphatase 123 45-117 U/L Total Protein 7.3 6.4-8.2 gm/dl Albumin 4.0 3.4-5.0 gm/dl Lipase 3250 73-393 U/L
[2016-09-07] MEDS ORDERED: CLONAZEPAM 1 MG TAB PO SCH (21:00)
[2016-09-07] MEDS ORDERED: HYDROmorphone INJ 1 MG/ML SYR IV STA (21:17)
[2016-09-07] MEDS ORDERED: HYDROmorphone INJ 2 MG/ML SYR/VIAL IV PRN (21:30)
[2016-09-07] MEDS ORDERED: NICOTINE 7 MG/24 HR TDSY TD ONE (23:37)
[2016-09-07] MEDS ORDERED: LORAZEPAM 2 MG/ML 1 ML VIAL IV ONE (23:37)
[2016-09-07] MEDS ORDERED: LORAZEPAM 2 MG/ML 1 ML VIAL IV PRN (23:45)
[2016-09-07] MEDS ORDERED: LEVALBUTEROL/IPRATROPIUM NEB INH STA (23:56)
[2016-09-07] MEDS ORDERED: LORAZEPAM 2 MG/ML 1 ML VIAL **EMERGENCY USE ONE (23:58)
[2016-09-08] VITALS (29 sets, daily range): BP systolic 106–165; BP diastolic 68–103; PULSE 77–132; TEMP 36.1–37.5; O2SAT 90–97; Ht 167.6 cm; Wt 79.4 kg
[2016-09-08] MEDS ORDERED: LEVALBUTEROL/IPRATROPIUM NEB INH PRN
[2016-09-08] MEDS ORDERED: IPRATROPIUM BROMIDE NEB SOLN 0.02% 2.5 ML VIAL INH STA (00:12)
[2016-09-08] MEDS ORDERED: LEVALBUTEROL 1.25MG/0.5ML NEB INH STA (00:12)
[2016-09-08] MEDS ORDERED: IPRATROPIUM BROMIDE NEB SOLN 0.02% 2.5 ML VIAL INH PRN (00:15)
[2016-09-08] MEDS ORDERED: LEVALBUTEROL 1.25MG/0.5ML NEB INH PRN (00:15)
[2016-09-08] MEDS ORDERED: LORAZEPAM INJ 1 MG in SYRINGE 0.5 ML IV ONE (00:15)
[2016-09-08 00:59] LABS: BASO % 0.2 %; BASO ABS # 0.04 K/uL (0-0.2); COMPLETE YES; IG% 0.4 %; LYMPH ABS # 1.36 K/uL (1.2-3.4); MEAN CELL VOLUME 83.1 fL (80-100); MEAN CORPUSCULAR HEMOGLOBIN 26.7 pg (25-34); MEAN CORPUSCULAR HGB CONC 32.1 g/dl (32-36); MEAN PLATELET VOLUME 9.8 fL (7.4-10.4); NEUT % 84.4 %; PLATELET COUNT 348 K/uL (130-400); RED BLOOD COUNT 3.97 M/uL (4.2-5.4); WHITE BLOOD COUNT 16.91 K/uL (4.8-10.8)
[2016-09-08] MEDS ORDERED: ACETAMINOPHEN 325 MG TAB PO PRN (01:00)
[2016-09-08] MEDS ORDERED: OPTIRAY 320 IV PRN (01:00)
[2016-09-08 01:04] LABS: ARTERIAL BLD GAS O2 SATURATION 93.5 % (90-95); ARTERIAL BLOOD GAS BASE EXCESS -10.5 mEq/L (-9-1.8); ARTERIAL BLOOD GAS HCO3 16 mmol/L (19-24); ARTERIAL BLOOD GAS PO2 81 mm/Hg (80-95); ARTERIAL BLOOD GAS pH 7.24 (7.35-7.45)
[2016-09-08 01:05] LABS: ALLEN TEST POS (POS); O2 ADMINISTRATION 5L
[2016-09-08 01:15] LABS: CALCIUM 8.5 mg/dl (8.5-10.1); CREATININE 1.1 mg/dl (0.60-1.20); MAGNESIUM 2.1 mg/dl (1.8-2.4); POTASSIUM 4.1 mmol/L (3.5-5.1)
[2016-09-08] MEDS: LORAZEPAM INJ 1 MG in SYRINGE 0.5 ML IV PRN ×3 (01:19→17:33)
[2016-09-08 01:28] LABS: ALB/GLOB RATIO 1.3 (0.9-2); THYROID STIMULATING HORMONE 0.676 uIu/ml (0.300-4.500)
[2016-09-08] MEDS ORDERED: FUROSEMIDE INJ 40 MG in SYRINGE 0 ML IV ONE (01:30)
[2016-09-08] MEDS ORDERED: GABAPENTIN 600 MG TAB PO SCH (02:30)
[2016-09-08] MEDS: IPRATROPIUM BROMIDE NEB SOLN 0.02% 2.5 ML VIAL INH SCH ×4 (02:39→20:42)
[2016-09-08] MEDS: LEVALBUTEROL 1.25MG/0.5ML NEB INH SCH ×4 (02:39→20:42)
[2016-09-08] MEDS ORDERED: HYDROmorphone INJ 0.5 MG/0.5 ML SYR IV PRN (02:45)
[2016-09-08] MEDS ORDERED: LEVALBUTEROL/IPRATROPIUM NEB INH SCH (03:00)
[2016-09-08 03:25] LABS: MANUAL MICROSCOPIC REQUIRED? NO; REVIEW REQ? NO; URINE APPEARANCE CLEAR (CLEAR); URINE BILIRUBIN NEG (NEG); URINE COLOR YELLOW; URINE NITRITE NEG (NEG); URINE SPECIFIC GRAVITY 1.009 (1.000-1.030); UROBILINOGEN NEG (NEG); ZZUR CULT IF INDIC CLEAN CATCH NO
[2016-09-08] MEDS: GABAPENTIN 1200MG LOADING DOSE PO SCH (03:40)
[2016-09-08 03:42] LABS: BENZODIAZEPINE, URINE NEG (NEG); COCAINE,URINE NEG (NEG); PHENCYCLIDINE, URINE NEG (NEG)
[2016-09-08] MEDS ORDERED: THIAMINE HCL INJ 100 MG in SYRINGE 9 ML IV ONE (03:45)
[2016-09-08 05:24] LABS: BUN/CREATININE RATIO 8.7 (10-20); CALCIUM 8.4 mg/dl (8.5-10.1); CREATININE 1.1 mg/dl (0.60-1.20); POTASSIUM 3.8 mmol/L (3.5-5.1)
--- NOTE | 2016-09-08 05:57 | Progress Note ---
Internal Med Progress Note Date of Service: Sep 08, 2016. Provider Documentation: LATE ENTRY PX seen 09/08/16 around 1215 AM SUBJECTIVE: called to eval px around 12AM for respiratory distress, hypoxemia increasing restlessness as per RN pleuritic L cp as per px no unusual cough sx sob worsening abd pain as per px OBJECTIVE: Vital Signs-as noted below Exam: General-min resp distress, anxious, restless HEENT -pale palp conjunctivae, dry buccal mucosa, nasal cannula in place Neck-supple Lungs-decreased BS Heart-tachycardic Abdomen-epigastric tenderness Extremities-no tenderness CXR min congestion, poor effort EKG accelerated junctional rhythm AP Acute hypoxemic resp failure, cp mild fluid overload on CXR ro recurrent PE ? ETOH withdrawal (varying accounts of last ETOH intake as per RN) worsening abd pain ro complications of pancreatitis PCU transfer supplemental O2 hold IVF, Lasix stat nebs stat, RTC, prn CT chest PE study CT abd pelvis DT precautions CT results initial read : no PE pancreatitis Vital Signs: Date Time Temp Pulse Resp B/P Pulse Ox O2 Delivery O2 Flow Rate FiO2 09/08/16 07:00 37.0 107 20 138/68 94 Nasal Cannula 5.0 09/08/16 06:26 37.1 108 20 128/75 96 Nasal Cannula 5.0 Humidified Oxygen 09/08/16 06:00 37.0 112 20 145/69 93 Nasal Cannula 5.0 Humidified Oxygen 09/08/16 05:26 36.6 110 22 158/78 95 Nasal Cannula 5.0 09/08/16 05:12 36.4 111 20 135/82 95 Nasal Cannula 5.0 Humidified Oxygen 09/08/16 05:02 36.2 111 18 127/70 96 Nasal Cannula 5.0 Humidified Oxygen 09/08/16 04:37 93 Nasal Cannula 5.0 Humidified Oxygen 09/08/16 04:35 37.0 116 20 154/86 93 Nasal Cannula 5.0 Humidified Oxygen 09/08/16 04:15 36.4 122 22 137/103 94 Nasal Cannula 5.0 09/08/16 03:57 36.4 115 22 106/71 95 Nasal Cannula 5.0 09/08/16 03:30 37.5 117 24 126/73 90 Nasal Cannula 5.0 09/08/16 01:50 36.1 119 94 5.0 09/08/16 00:27 37.0 132 18 132/76 94 Nasal Cannula 4.0 09/08/16 00:15 94 Nasal Cannula 5.0 09/08/16 00:15 94 Nasal Cannula 5.0 09/08/16 00:08 36.1 119 165/101 94 Nasal Cannula 5.0 09/07/16 16:20 96 Room Air 09/07/16 16:13 37.1 129 16 149/85 90 Room Air 09/07/16 11:31 111 125/63 09/07/16 09:32 36.5 111 16 162/105 93 Room Air Lab Results: Results Past 24 Hours Test 09/08/16 00:11 09/08/16 00:46 09/08/16 03:12 09/08/16 04:55 Range/Units Bedside Glucose 103 70-90 mg/dl White Blood Count 16.91 4.8-10.8 K/uL Red Blood Count 3.97 4.2-5.4 M/uL Hemoglobin 10.6 12.0-16.0 g/dL Hematocrit 33.0 37-47 % Mean Corpuscular Volume 83.1 80-100 fL Mean Corpuscular Hemoglobin 26.7 25-34 pg Mean Corpuscular Hemoglobin Concent 32.1 32-36 g/dl Platelet Count 348 130-400 K/uL Mean Platelet Volume 9.8 7.4-10.4 fL Neutrophils (%) (Auto) 84.4 % Lymphocytes (%) (Auto) 8.0 % Monocytes (%) (Auto) 7.0 % Eosinophils (%) (Auto) 0.0 % Basophils (%) (Auto) 0.2 % Neutrophils # (Auto) 14.25 1.4-6.5 K/uL Lymphocytes # (Auto) 1.36 1.2-3.4 K/uL Monocytes # (Auto) 1.19 0.11-0.59 K/uL Eosinophils # (Auto) 0.00 0-0.5 K/uL Basophils # (Auto) 0.04 0-0.2 K/uL RDW Standard Deviation 54.0 36.4-46.3 fL RDW Coefficient of Variation 17.7 11.5-14.5 % Immature Granulocyte % (Auto) 0.4 % Immature Granulocyte # (Auto) 0.07 0.00-0.02 K/uL Nucleated RBC Absolute Count (auto) 0.02 0-0 K/uL Nucleated Red Blood Cells % 0.1 % Activated Partial Thromboplast Time 25.8 21.0-31.0 SECONDS Partial Thromboplastin Ratio 1.0 Arterial Blood pH 7.24 7.35-7.45 Arterial Blood Partial Pressure CO2 39 35-46 mmHg Arterial Blood Partial Pressure O2 81 80-95 mm/Hg Arterial Blood HCO3 16 19-24 mmol/L Arterial Blood Oxygen Saturation 93.5 90-95 % Arterial Blood Base Excess -10.5 -9-1.8 mEq/L Arterial Blood Gas Delivery 5L Lorenzo Test POS POS Sodium Level 152 150 136-145 mmol/L Potassium Level 4.1 3.8 3.5-5.1 mmol/L Chloride Level 117 113 98-107 mmol/L Carbon Dioxide Level 16 16 21-32 mmol/L Anion Gap 19.0 21.0 3-11 mmol/L Blood Urea Nitrogen 9 10 7-18 mg/dl Creatinine 1.10 1.10 0.60-1.20 mg/dl Est Creatinine Clear Calc Drug Dose 77.6 77.6 ml/min Estimated GFR () 76.9 76.9 Estimated GFR (Non- 66.4 66.4 BUN/Creatinine Ratio 8.0 8.7 10-20 Random Glucose 108 142 70-99 mg/dl Calcium Level 8.5 8.4 8.5-10.1 mg/dl Magnesium Level 2.1 1.8-2.4 mg/dl Total Bilirubin 0.6 0.2-1 mg/dl Aspartate Amino Transf (AST/SGOT) 148 15-37 U/L Alanine Aminotransferase (ALT/SGPT) 73 12-78 U/L Alkaline Phosphatase 119 45-117 U/L Troponin I 0.067 0.112 0-0.045 ng/ml Pro-B-Type Natriuretic Peptide 2067 0-450 pg/ml Total Protein 7.5 6.4-8.2 gm/dl Albumin 4.2 3.4-5.0 gm/dl Globulin 3.3 2.5-4.0 gm/dl Albumin/Globulin Ratio 1.3 0.9-2 Lipase 1227 73-393 U/L Thyroid Stimulating Hormone (TSH) 0.676 0.300-4.500 uIu/ml Urine Color YELLOW Urine Appearance CLEAR CLEAR Urine pH 5.0 4.5-7.5 Urine Specific [place] 1.009 1.000-1.030 Urine Protein NEG NEG Urine Glucose (UA) NEG NEG Urine Ketones TRACE NEG Urine Occult Blood 2+ NEG Urine Nitrite NEG NEG Urine Bilirubin NEG NEG Urine Urobilinogen NEG NEG Urine Leukocyte Esterase NEG NEG Urine WBC (Auto) 0 0-5 /hpf Urine RBC (Auto) 0-4 0-4 /hpf Urine Hyaline Casts (Auto) 1-5 0-5 /lpf Urine Epithelial Cells (Auto) 10-20 0-5 /lpf Urine Bacteria (Auto) NEG NEG Urine Opiates Screen POS NEG Urine Methadone, Qualitative NEG NEG Urine Barbiturates NEG NEG Urine Phencyclidine (PCP) Level NEG NEG Ur Amphetamine/Methamphetamine NEG NEG MDMA (Ecstasy) Screen NEG NEG Urine Benzodiazepines Screen NEG NEG Urine Cocaine Metabolite NEG NEG Urine Marijuana (THC) NEG NEG Lactic Acid Level 2.2 0.4-2.0 mmol/L Test 09/08/16 07:45 Range/Units Bedside Glucose 137 70-90 mg/dl Microbiology Results 09/08/16 Blood Culture, Received Pending 09/08/16 Blood Culture, Received Pending
[2016-09-08] MEDS: ALBUMIN HUMAN 25% 12.5 GM/50 ML VIAL IV SCH ×2 (06:21→07:00)
[2016-09-08] MEDS: INSULIN ASPART 100 UNITS/ML 3 ML PEN SC SCH ×5 (06:30→22:06)
--- NOTE | 2016-09-08 06:48 | DIAGNOSTIC IMAGING REPORT ---
CHEST ONE VIEW PORTABLE CLINICAL HISTORY: Hypoxia COMPARISON STUDY: 03/02/2016 FINDINGS: The surgical changes are evident. There is a right epicardial electrode. Midline sternotomy wires are visualized. A stent projects over the midline. There are low lung volumes. There is mild vascular prominence. There is no lobar consolidation. There are no pleural effusions.[ IMPRESSION: 1. Postsurgical change 2. Low lung volumes with central vascular prominence. 3. No evidence of lobar consolidation Electronically signed by: Jakub Paige M.D. 09/08/2016 6:46 AM Dictated Date/Time: 09/08/2016 6:43 AM
--- NOTE | 2016-09-08 07:07 | DIAGNOSTIC IMAGING REPORT ---
CT ABD/PELVIS IV CONTRAST ONLY CLINICAL HISTORY: worsening abd pain COMPARISON STUDY: 09/06/2016 TECHNIQUE: Following the IV administration of 92 mL of Optiray-320, CT scan of the abdomen and pelvis was performed from the lung bases to the proximal femurs. Images are reviewed in the axial, sagittal, and coronal planes. IV contrast was administered without complication. CT DOSE: 849.12 mGy.cm FINDINGS: Lower chest: There is evidence for a cardiac anomaly. There is a stent within distal superior vena cava. Liver: There is severe hepatic steatosis. No focal masses are visualized. Gallbladder: Not visualized Spleen: Normal in size and attenuation. Pancreas: There is peripancreatic infiltration. Pancreatitis cannot be excluded. Please correlate with appropriate biochemical markers. Adrenal glands: Unremarkable. Kidneys: There is symmetric renal cortical enhancement. The kidneys are normal in size without hydronephrosis. Bowel: There are no transition zones indicate bowel obstruction. Evaluation is markedly limited due to motion artifact. Peritoneum: There is a small amount of free fluid within the pelvis. No free air is visualized. Evaluation is limited due to motion artifact. Vasculature: The abdominal aorta is normal in course and caliber. Adenopathy: None. Pelvic viscera: The bladder, and pelvic viscera are unremarkable. Skeletal structures: No destructive osseous lesions are seen. IMPRESSION: 1. Markedly limited study secondary to motion artifact 2. Small amount of free pelvic fluid 3. No evidence of bowel obstruction. No evidence of free air 4. Hepatic steatosis 5. Nonvisualization of the gallbladder 6. Peripancreatic infiltration. Pancreatitis cannot be excluded. Please correlate with appropriate biochemical markers. Electronically signed by: Jakub Paige M.D. 09/08/2016 7:05 AM Dictated Date/Time: 09/08/2016 7:00 AM
--- NOTE | 2016-09-08 07:18 | DIAGNOSTIC IMAGING REPORT ---
CT ANGIOGRAPHY OF THE CHEST, PULMONARY EMBOLUS PROTOCOL CLINICAL HISTORY: Chest pain. Hypokalemia. COMPARISON STUDY: Chest CT September 05, 2015. TECHNIQUE: Following IV administration of 92 mL of Optiray-320, helical axial images of the chest were obtained utilizing the pulmonary embolus protocol. Maximal intensity projections and sagittal and coronal reformats were viewed on an independent 3D workstation. IV contrast was administered without complication. FINDINGS: This exam is markedly compromised by respiratory motion. There is no central pulmonary embolus. The remainder of the pulmonary arteries are suboptimally assessed. 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 A stent within the SVC is grossly patent. There is no pericardial effusion. Mild to moderate cardiomegaly is unchanged. Lungs are suboptimally assessed due to respiratory motion. Mild right lower lobe opacity is noted. There is no pneumothorax or pleural effusion. The abdomen and pelvis will be reported separately. There is marked fatty infiltration of the liver. There is no thoracic lymphadenopathy. IMPRESSION: 1. No central pulmonary emboli. The remainder of the pulmonary arteries are suboptimally assessed due to respiratory motion. 2. Congenital transposition of the great vessels. Unchanged appearance of the heart since prior CT. Electronically signed by: Jimmy Payton M.D. 09/08/2016 7:17 AM Dictated Date/Time: 09/08/2016 7:09 AM
[2016-09-08] MEDS: MAGNESIUM OXIDE 400 MG TAB PO SCH (07:40)
[2016-09-08] MEDS: SERTRALINE HCL 50 MG TAB PO SCH (07:40)
[2016-09-08] MEDS: CLONAZEPAM 1 MG TAB PO SCH ×4 (07:41→22:00)
[2016-09-08] MEDS: GABAPENTIN 600MG Q6H DOSE PO SCH ×2 (07:41→16:00)
[2016-09-08 07:44] LABS: ESTIMATED AVERAGE GLUCOSE 200 mg/dl; HA1C FLAG Normal (Normal)
[2016-09-08] MEDS: LORAZEPAM 1 MG TAB PO PRN ×2 (07:49→08:51)
[2016-09-08] MEDS ORDERED: LORAZEPAM 2 MG/ML 1 ML VIAL ONE (07:55)
[2016-09-08] MEDS ORDERED: NURSING VERBAL MED ORDER ONE ×2 (08:00→08:30)
[2016-09-08] MEDS: ENOXAPARIN 40 MG/0.4 ML SYR SQ SCH (08:00)
[2016-09-08] MEDS: MULTIVITAMIN TAB PO SCH (08:00)
[2016-09-08] MEDS ORDERED: LORAZEPAM 2 MG/ML 1 ML VIAL IM PRN (08:00)
[2016-09-08] MEDS: NICOTINE 7 MG/24 HR TDSY TD SCH (08:01)
[2016-09-08] MEDS ORDERED: HALOPERIDOL LACTATE 5 MG/ML 1 ML VIAL ONE (08:20)
[2016-09-08] MEDS ORDERED: HALOPERIDOL LACTATE 5 MG/ML 1 ML VIAL IM ONE (08:30)
[2016-09-08] MEDS ORDERED: THIAMINE HCL INJ 100 MG in SYRINGE 9 ML IV SCH (09:00)
--- NOTE | 2016-09-08 11:24 | Gastroenterology Progress Note ---
Progress Note Date of Service: Sep 08, 2016 Subjective Pt evaluation today including: physical exam, chart review, lab review Ms Garzon was examined this morning. She was sleeping and unable to converse due to drowsiness. Per [employer] she was given ativan and haldol as she had not slept in 3 days and was becoming restless and somewhat distressed. ROS or history unobtainable. CT abd 09/08/16: Markedly limited study secondary to motion artifact Small amount of free pelvic fluid No evidence of bowel obstruction. No evidence of free air Hepatic steatosis Nonvisualization of the gallbladder Peripancreatic infiltration. Pancreatitis cannot be excluded. Please correlate with appropriate biochemical markers. Medications Current Inpatient Medications Medications (Trade) Dose Ordered Sig/Veronica Route Start Time Stop Time Status Last Admin Dose Admin Al Hydrox/Mg Hydrox/Simethicone (Maalox Max Susp) 15 ml Q4H PRN PO 09/06/16 12:15 10/06/16 12:14 Ondansetron HCl (Zofran Inj) 4 mg Q6H PRN IV 09/06/16 12:15 10/06/16 12:14 09/07/16 18:31 4 MG Albuterol/ Ipratropium (Combivent Respimat Inh) 2 puffs QID PRN INH 09/06/16 12:15 10/06/16 12:14 Montelukast Sodium (Singulair Tab) 10 mg HS PO 09/06/16 21:00 10/06/16 20:59 09/07/16 20:30 10 MG Magnesium Oxide 400 mg 400 mg DAILY PO 09/07/16 09:00 10/07/16 08:59 09/08/16 07:40 400 MG Pantoprazole Sodium/Syringe (Protonix Inj/ Syringe) 10 ml @ 5 mls/min DAILY@11 IV 09/07/16 11:00 10/07/16 10:59 09/07/16 10:28 5 MLS/MIN Sertraline HCl (Zoloft Tab) 50 mg DAILY PO 09/07/16 09:00 10/07/16 08:59 09/08/16 07:40 50 MG Ioversol (Optiray 320) 125 ml UD PRN IV 09/06/16 12:45 09/10/16 12:44 Glucose (Glucose 40% Gel) 15-30 GRAMS 15 GRAMS... UD PRN PO 09/06/16 15:30 10/06/16 15:29 Glucose (Glucose Chew Tab) 4-8 Tablets 4 Tabl... UD PRN PO 09/06/16 15:30 10/06/16 15:29 Dextrose (Dextrose 50% 50ML Syringe) 25-50ML OF 50% DW IV FOR... UD PRN IV 09/06/16 15:30 10/06/16 15:29 Glucagon (Glucagon Inj) 1 mg UD PRN SQ 09/06/16 15:30 10/06/16 15:29 Miscellaneous Information (Order Awaiting Action) 1 ea QS N/A 09/06/16 16:00 10/06/16 15:59 Oxycodone/ Acetaminophen (Percocet 5-325mg Tab) pain not relieved by tylenol Q6H PRN PO 09/06/16 20:45 09/20/16 20:44 09/07/16 16:28 2 TAB Diphenhydramine HCl 25 mg 25 mg Q6H PRN PO 09/07/16 05:00 10/07/16 04:59 09/07/16 18:31 25 MG Promethazine HCl/ Sodium Chloride (Phenergan Inj/ Nss 50ml) 50.5 ml @ 204 mls/hr Q6H PRN IV 09/07/16 08:45 10/07/16 08:44 09/07/16 16:05 204 MLS/HR Clonazepam (Klonopin Tab) 1 mg TID PO 09/07/16 17:00 09/07/16 20:29 1 MG Nicotine (Nicoderm Cq 7 Mg Patch) 1 patch QAM TD 09/08/16 09:00 10/08/16 08:59 Miscellaneous (Remove Nicoderm Patch) 1 ea HS N/A 09/08/16 21:00 10/08/16 20:59 Folic Acid (Folvite Tab) 1 mg QAM PO 09/08/16 09:00 10/08/16 08:59 Multivitamins (Multivitamin Tab) 1 tab QAM PO 09/08/16 09:00 10/08/16 08:59 Thiamine HCl 100 mg 100 mg QAM PO 09/09/16 09:00 10/09/16 08:59 Lorazepam/Syringe (Ativan Inj/ Syringe) 1 ml @ 1 mls/min Q1H PRN IV 09/08/16 00:15 10/08/16 00:14 09/08/16 04:39 1 MLS/MIN Ipratropium Warren (Atrovent 0.02% 0.5MG/2.5ML Neb) 0.5 mg Q4H PRN INH 09/08/16 00:15 10/08/16 00:14 Levalbuterol (Xopenex 1.25MG/ 0.5ML Neb) 1.25 mg Q4H PRN INH 09/08/16 00:15 10/08/16 00:14 Ioversol (Optiray 320) 100 ml UD PRN IV 09/08/16 01:00 09/12/16 00:59 Enoxaparin Sodium (Lovenox Inj) 40 mg QAM SQ 09/08/16 09:00 10/08/16 08:59 Acetaminophen (Tylenol Tab) 650 mg Q4H PRN PO 09/08/16 01:00 10/08/16 00:59 Ipratropium [place] (Atrovent 0.02% 0.5MG/2.5ML Neb) 0.5 mg Q6R INH 09/08/16 03:00 10/08/16 02:59 Levalbuterol (Xopenex 1.25MG/ 0.5ML Neb) 1.25 mg Q6R INH 09/08/16 03:00 10/08/16 02:59 Lorazepam (Ativan Tab) 3 mg UD PRN PO 09/08/16 02:30 10/08/16 02:29 09/08/16 08:51 2 MG Hydromorphone HCl (Dilaudid Inj) 0.5 mg Q3H PRN IV 09/08/16 02:45 09/22/16 02:44 Gabapentin (Neurontin Tab) 1,200 mg TODAY@0330 PO 09/08/16 03:30 10/08/16 03:29 09/08/16 03:40 1,200 MG Gabapentin (Neurontin Tab) 600 mg Q6H PO 09/08/16 10:00 09/08/16 16:01 09/08/16 07:41 600 MG Gabapentin (Neurontin Tab) 600 mg Q8H PO 09/09/16 06:00 09/09/16 22:01 Gabapentin (Neurontin Tab) 600 mg Q12H PO 09/10/16 08:00 09/10/16 20:01 Gabapentin (Neurontin Tab) 600 mg Q24H PO 09/11/16 09:00 09/11/16 09:01 Insulin Aspart (novoLOG ASPART) SLIDING SCALE G... ACHS SC 09/08/16 06:30 10/08/16 06:29 Lorazepam (Ativan Inj) 1 mg Q1H PRN IM 09/08/16 08:00 10/08/16 07:59 09/08/16 08:02 1 MG Objective Vital Signs Date Time Temp Pulse Resp B/P Pulse Ox O2 Delivery O2 Flow Rate FiO2 09/08/16 09:40 36.7 83 20 135/83 97 Nasal Cannula 5.0 09/08/16 08:25 37.0 105 20 140/88 94 Nasal Cannula 5.0 09/08/16 08:00 94 Nasal Cannula 5.0 09/08/16 07:00 37.0 107 20 138/68 94 Nasal Cannula 5.0 09/08/16 06:26 37.1 108 20 128/75 96 Nasal Cannula 5.0 Humidified Oxygen 09/08/16 06:00 37.0 112 20 145/69 93 Nasal Cannula 5.0 Humidified Oxygen 09/08/16 05:26 36.6 110 22 158/78 95 Nasal Cannula 5.0 09/08/16 05:12 36.4 111 20 135/82 95 Nasal Cannula 5.0 Humidified Oxygen 09/08/16 05:02 36.2 111 18 127/70 96 Nasal Cannula 5.0 Humidified Oxygen 09/08/16 04:37 93 Nasal Cannula 5.0 Humidified Oxygen 09/08/16 04:35 37.0 116 20 154/86 93 Nasal Cannula 5.0 Humidified Oxygen 09/08/16 04:15 36.4 122 22 137/103 94 Nasal Cannula 5.0 09/08/16 03:57 36.4 115 22 106/71 95 Nasal Cannula 5.0 09/08/16 03:30 37.5 117 24 126/73 90 Nasal Cannula 5.0 09/08/16 01:50 36.1 119 94 5.0 2/20/17 00:27 37.0 132 18 132/76 94 Nasal Cannula 4.0 09/08/16 00:15 94 Nasal Cannula 5.0 09/08/16 00:15 94 Nasal Cannula 5.0 09/08/16 00:08 36.1 119 165/101 94 Nasal Cannula 5.0 09/07/16 16:20 96 Room Air 09/07/16 16:13 37.1 129 16 149/85 90 Room Air 09/07/16 11:31 111 125/63 Physical Exam General Appearance: no apparent distress (patient is not responsive to name) Respiratory/Chest: lungs clear, normal breath sounds, no respiratory distress, no accessory muscle use Cardiovascular: regular rate, rhythm, no edema, no gallop, no JVD, no murmur Abdomen: normal bowel sounds, soft, no organomegaly, no pulsatile mass Skin: normal color, no jaundice, warm/dry Laboratory Results Last 24 Hours Test 09/08/16 00:11 09/08/16 00:46 09/08/16 03:12 09/08/16 04:55 Bedside Glucose 103 mg/dl White Blood Count 16.91 K/uL Red Blood Count 3.97 M/uL Hemoglobin 10.6 g/dL Hematocrit 33.0 % Mean Corpuscular Volume 83.1 fL Mean Corpuscular Hemoglobin 26.7 pg Mean Corpuscular Hemoglobin Concent 32.1 g/dl Platelet Count 348 K/uL Mean Platelet Volume 9.8 fL Neutrophils (%) (Auto) 84.4 % Lymphocytes (%) (Auto) 8.0 % Monocytes (%) (Auto) 7.0 % Eosinophils (%) (Auto) 0.0 % Basophils (%) (Auto) 0.2 % Neutrophils # (Auto) 14.25 K/uL Lymphocytes # (Auto) 1.36 K/uL Monocytes # (Auto) 1.19 K/uL Eosinophils # (Auto) 0.00 K/uL Basophils # (Auto) 0.04 K/uL RDW Standard Deviation 54.0 fL RDW Coefficient of Variation 17.7 % Immature Granulocyte % (Auto) 0.4 % Immature Granulocyte # (Auto) 0.07 K/uL Nucleated RBC Absolute Count (auto) 0.02 K/uL Nucleated Red Blood Cells % 0.1 % Activated Partial Thromboplast Time 25.8 SECONDS Partial Thromboplastin Ratio 1.0 Arterial Blood pH 7.24 Arterial Blood Partial Pressure CO2 39 mmHg Arterial Blood Partial Pressure O2 81 mm/Hg Arterial Blood HCO3 16 mmol/L Arterial Blood Oxygen Saturation 93.5 % Arterial Blood Base Excess -10.5 mEq/L Arterial Blood Gas Delivery 5L Lorenzo Test POS Sodium Level 152 mmol/L 150 mmol/L Potassium Level 4.1 mmol/L 3.8 mmol/L Chloride Level 117 mmol/L 113 mmol/L Carbon Dioxide Level 16 mmol/L 16 mmol/L Anion Gap 19.0 mmol/L 21.0 mmol/L Blood Urea Nitrogen 9 mg/dl 10 mg/dl Creatinine 1.10 mg/dl 1.10 mg/dl Est Creatinine Clear Calc Drug Dose 77.6 ml/min 77.6 ml/min Estimated GFR () 76.9 76.9 Estimated GFR (Non- 66.4 66.4 BUN/Creatinine Ratio 8.0 8.7 Random Glucose 108 mg/dl 142 mg/dl Calcium Level 8.5 mg/dl 8.4 mg/dl Magnesium Level 2.1 mg/dl Total Bilirubin 0.6 mg/dl Aspartate Amino Transf (AST/SGOT) 148 U/L Alanine Aminotransferase (ALT/SGPT) 73 U/L Alkaline Phosphatase 119 U/L Troponin I 0.067 ng/ml 0.112 ng/ml Pro-B-Type Natriuretic Peptide 2067 pg/ml Total Protein 7.5 gm/dl Albumin 4.2 gm/dl Globulin 3.3 gm/dl Albumin/Globulin Ratio 1.3 Lipase 1227 U/L Thyroid Stimulating Hormone (TSH) 0.676 uIu/ml Urine Color YELLOW Urine Appearance CLEAR Urine pH 5.0 Urine Specific [place] 1.009 Urine Protein NEG Urine Glucose (UA) NEG Urine Ketones TRACE Urine Occult Blood 2+ Urine Nitrite NEG Urine Bilirubin NEG Urine Urobilinogen NEG Urine Leukocyte Esterase NEG Urine WBC (Auto) 0 /hpf Urine RBC (Auto) 0-4 /hpf Urine Hyaline Casts (Auto) 1-5 /lpf Urine Epithelial Cells (Auto) 10-20 /lpf Urine Bacteria (Auto) NEG Urine Opiates Screen POS Urine Methadone, Qualitative NEG Urine Barbiturates NEG Urine Phencyclidine (PCP) Level NEG Ur Amphetamine/Methamphetamine NEG MDMA (Ecstasy) Screen NEG Urine Benzodiazepines Screen NEG Urine Cocaine Metabolite NEG Urine Marijuana (THC) NEG Lactic Acid Level 2.2 mmol/L Test 09/08/16 07:45 Bedside Glucose 137 mg/dl Assessment and Plan Ms. Garzon is a 30 year old female with a history of gallstone pancreatitis in 2010 s/p cholecystectomy who was admitted with acute pancreatitis. No significant ETOH. LFTs essentially normal. She may have passed a stone. NPO IVF anti-emetics/analgesia PRN no MRCP secondary to PPM outpatient EUS once she recovers from this acute episode ?ERCP pending EUS. Attg addendum: I interviewed and examined pt, reviewed chart and labs. Pt is drowsy but awake, and answers questions reluctantly, but appropriately. Abd is mildly tender in epigastrium. Labs show decrease in hgb, BUN. CT shows chi- panc inflammation. Please adv diet as tolerated, cont analgesia as needed. Please check trigs. Will sign off, please reconsult as needed.
[2016-09-08] MEDS ORDERED: ALBUMIN HUMAN 25% 12.5 GM/50 ML VIAL IV SCH (11:30)
[2016-09-08] MEDS: PANTOprazole INJ 40 MG in SYRINGE 0 ML IV SCH (11:44)
--- NOTE | 2016-09-08 20:19 | Progress Note ---
Progress Note ATTENDING NOTE : pt's boyfriend Mr Stephany Marsh ) mentions that pt has long history of prescription pain medication abuse developed serotonin syndrome in past has been abusing Ambien -takes them excessively gets confused , hallucinates forgets about the whole incident had multiple ER visits with complain of chest pain for IV narcotic pain meds [place] already aware of her narcotic pain medication dependency she was discharged with out pain meds as work ups were negative pt now drives all the way to [facility] ER He also voiced concern that pt may have extra medications /electronic cigarette in her purse may be using it in Bathroom apparently there was an incident last night when she locked herself in bathroom will update Nursing and have security check her belongings -all narcotic will be stored in Hospital pharmacy for pt's own safety will not be discharged with any Narcotic pain meds Ambien discontinued will update [facility] Physician as pt probably will benefit with a pain medication contract -so all her medications can be followed and care can be terminated if pt obtains pain medications from multiple providers , uses medications more than what is prescribed for CK level ordered -very low suspicion for Serotonin syndrome not on any SSRI or atypical antipsychotics no hyperthermia , tachycardia or hemodynamic instability cont to monitor in tele cont IV fluids for acute pancreatitis
[2016-09-08] MEDS ORDERED: KETOROLAC TROMETHAMINE 15 MG/ML VIAL IV PRN (21:45)
[2016-09-08] MEDS: SODIUM CHLORIDE 0.9% 1000ML 1,000 ML IV SCH (22:00)
[2016-09-08] MEDS: MONTELUKAST SOD 10 MG TAB PO SCH (22:01)
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
[2016-09-09] VITALS (11 sets, daily range): BP systolic 125–151; BP diastolic 78–106; PULSE 75–94; TEMP 36.4–37.3; O2SAT 90–96
[2016-09-09] MEDS: OXYCODONE/ACETAMINOPHEN 5-325 TAB PO PRN ×4 (01:15→21:25)
[2016-09-09] MEDS: LORAZEPAM INJ 1 MG in SYRINGE 0.5 ML IV PRN ×3 (01:34→12:47)
[2016-09-09] MEDS: IPRATROPIUM BROMIDE NEB SOLN 0.02% 2.5 ML VIAL INH SCH ×3 (02:40→20:33)
[2016-09-09] MEDS: LEVALBUTEROL 1.25MG/0.5ML NEB INH SCH ×3 (02:40→20:34)
[2016-09-09] MEDS: GABAPENTIN 1200MG LOADING DOSE PO SCH (03:15)
[2016-09-09] MEDS: HYDROmorphone INJ 0.5 MG/0.5 ML SYR IV PRN ×2 (03:20→09:37)
[2016-09-09] MEDS: SODIUM CHLORIDE 0.9% 1000ML 1,000 ML IV SCH ×3 (05:29→21:24)
[2016-09-09] MEDS: GABAPENTIN 600MG Q8H DOSE PO SCH ×3 (05:30→21:26)
[2016-09-09 06:01] LABS: BASO % 0.2 %; BASO ABS # 0.02 K/uL (0-0.2); COMPLETE YES; EOS % 0.7 %; HEMATOCRIT 29.5 % (37-47); IG% 0.2 %; LYMPH % 12.2 %; LYMPH ABS # 1.09 K/uL (1.2-3.4); MEAN CELL VOLUME 79.7 fL (80-100); MEAN CORPUSCULAR HEMOGLOBIN 26.8 pg (25-34); MEAN CORPUSCULAR HGB CONC 33.6 g/dl (32-36); MEAN PLATELET VOLUME 9.4 fL (7.4-10.4); MONO % 6.8 %; NEUT % 79.9 %; PLATELET COUNT 231 K/uL (130-400); WHITE BLOOD COUNT 8.97 K/uL (4.8-10.8)
[2016-09-09 06:44] LABS: CREATININE 0.72 mg/dl (0.60-1.20)
[2016-09-09 06:45] LABS: BUN/CREATININE RATIO 3.8 (10-20); CALCIUM 8.4 mg/dl (8.5-10.1); MAGNESIUM 2.1 mg/dl (1.8-2.4); POTASSIUM 3.2 mmol/L (3.5-5.1)
[2016-09-09] MEDS: CLONAZEPAM 1 MG TAB PO SCH ×3 (07:42→21:29)
[2016-09-09] MEDS: THIAMINE HCL 100 MG TAB PO SCH (07:43)
[2016-09-09] MEDS: MULTIVITAMIN TAB PO SCH (07:43)
[2016-09-09] MEDS: MAGNESIUM OXIDE 400 MG TAB PO SCH (07:43)
[2016-09-09] MEDS: NICOTINE 7 MG/24 HR TDSY TD SCH (07:43)
[2016-09-09] MEDS: ENOXAPARIN 40 MG/0.4 ML SYR SQ SCH (07:45)
[2016-09-09] MEDS: INSULIN ASPART 100 UNITS/ML 3 ML PEN SC SCH ×4 (07:49→21:32)
[2016-09-09] MEDS: PANTOprazole INJ 40 MG in SYRINGE 0 ML IV SCH (09:37)
[2016-09-09] MEDS: LORAZEPAM 1 MG TAB PO PRN ×3 (10:11→21:24)
[2016-09-09] MEDS: POTASSIUM CHLR 10 MEQ / WTR 10 MEQ in PREMIXED WATER 100 ML IV SCH ×4 (17:43→21:24)
--- NOTE | 2016-09-09 18:43 | Progress Note ---
Subjective Date of Service: Sep 09, 2016. Subjective Pt evaluation today including: conversation w/ patient, physical exam, lab review, review of studies, review of inpatient medication list Saw/examined the patient in room 284 +lethargy, +weakness +abdominal tenderness tolerating clears no fevers/chills Problem List Medical Problems: (1) Hypokalemia Status: Acute (2) Left flank pain Status: Acute (3) Non-cardiac chest pain Status: Acute (4) Non-cardiac chest pain Status: Acute (5) Pacemaker malfunction Status: Acute (6) Pancreatitis Status: Acute (7) Precordial chest pain Status: Acute (8) Pyelonephritis Status: Acute (9) Shortness of breath Status: Acute (10) Transaminitis Status: Acute (11) Upper respiratory infection Status: Acute Review of Systems Constitutional: No chills, No fever Respiratory: No cough, No shortness of breath, No sputum Cardiac: No chest pain Abdomen: + nausea, + pain (epigastric, mid umbilicus), No GI bleeding, No constipation, No diarrhea, No vomiting Female : No dysuria, No urinary frequency Psychiatric: + anxiety, + depression symptoms, + substance abuse (narcotics, possible EtOH) Heme: No abnormal bleeding/bruising Objective Vital Signs Date Time Temp Pulse Resp B/P Pulse Ox O2 Delivery O2 Flow Rate FiO2 09/09/16 17:37 36.8 87 20 145/96 95 Nasal Cannula 2.0 09/09/16 15:20 36.8 94 22 144/91 90 Room Air 2.0 09/09/16 12:29 Nasal Cannula 4.0 09/09/16 10:55 36.4 87 20 136/97 95 Nasal Cannula 4.0 09/09/16 10:34 96 Nasal Cannula 4.0 09/09/16 08:00 Nasal Cannula 5.0 09/09/16 07:34 36.7 75 20 134/87 95 Nasal Cannula 09/09/16 04:00 Nasal Cannula 5.0 09/09/16 03:52 36.9 89 16 135/78 94 5.0 09/09/16 02:41 80 14 95 Nasal Cannula 5.0 09/09/16 00:54 37.3 88 16 125/81 94 5.0 09/09/16 00:00 Nasal Cannula 5.0 09/08/16 22:55 36.9 88 16 127/78 97 5.0 09/08/16 21:00 36.7 95 20 142/89 95 Nasal Cannula 5.0 09/08/16 20:42 82 18 95 Nasal Cannula 5.0 09/08/16 20:00 Nasal Cannula 5.0 Physical Exam General Appearance: + mild distress, + pertinent finding (+lethargy, anxiety, tremulousness) ENT: + pertinent finding (+teeth removed) Respiratory/Chest: lungs clear, normal breath sounds, no respiratory distress, no accessory muscle use Cardiovascular: regular rate, rhythm, no edema, no murmur Abdomen: normal bowel sounds, soft, + tenderness Extremities: normal inspection, no pedal edema Neurologic/Psychiatric: no motor/sensory deficits, alert, normal mood/affect Skin: normal color Laboratory Results Last 24 Hours Test 09/08/16 21:43 09/08/16 21:59 09/09/16 05:15 09/09/16 07:46 Total Creatine Kinase 7068 U/L 7138 U/L Bedside Glucose 254 mg/dl 208 mg/dl White Blood Count 8.97 K/uL Red Blood Count 3.70 M/uL Hemoglobin 9.9 g/dL Hematocrit 29.5 % Mean Corpuscular Volume 79.7 fL Mean Corpuscular Hemoglobin 26.8 pg Mean Corpuscular Hemoglobin Concent 33.6 g/dl Platelet Count 231 K/uL Mean Platelet Volume 9.4 fL Neutrophils (%) (Auto) 79.9 % Lymphocytes (%) (Auto) 12.2 % Monocytes (%) (Auto) 6.8 % Eosinophils (%) (Auto) 0.7 % Basophils (%) (Auto) 0.2 % Neutrophils # (Auto) 7.17 K/uL Lymphocytes # (Auto) 1.09 K/uL Monocytes # (Auto) 0.61 K/uL Eosinophils # (Auto) 0.06 K/uL Basophils # (Auto) 0.02 K/uL RDW Standard Deviation 52.2 fL RDW Coefficient of Variation 17.9 % Immature Granulocyte % (Auto) 0.2 % Immature Granulocyte # (Auto) 0.02 K/uL Sodium Level 143 mmol/L Potassium Level 3.2 mmol/L Chloride Level 108 mmol/L Carbon Dioxide Level 20 mmol/L Anion Gap 15.0 mmol/L Blood Urea Nitrogen 3 mg/dl Creatinine 0.72 mg/dl Est Creatinine Clear Calc Drug Dose 118.9 ml/min Estimated GFR () 128.4 Estimated GFR (Non- 110.8 BUN/Creatinine Ratio 3.8 Random Glucose 257 mg/dl Calcium Level 8.4 mg/dl Magnesium Level 2.1 mg/dl Lipase 467 U/L Test 09/09/16 11:38 09/09/16 16:16 Bedside Glucose 141 mg/dl 265 mg/dl Assessment and Plan This is a 30 year old female with 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 of SVT s/p ablation, sick sinus syndrome and paroxysmal atrial tachycardia s/p PPM, SVC stenosis s/p stenting, bipolar disorder, anxiety , DM2, tobacco use disorder, recurrent pancreatitis, hx. of cholecystectomy presents with abdominal pain Acute Pancreatitis Lipase was elevated on presentation Abdominal CT Moderate peripancreatic infiltration and fluid consistent with acute pancreatitis. No evidence of pancreatic necrosis. No peripancreatic fluid collections. possibly secondary to EtOH use? conservative management - was NPO, now advanced to clears, IVFs, analgesics, anti-emetics as needed stopped IV dilaudid - avoid narcotics when able Noted nursing note with boyfriend stating that she comes to [facility] to obtain narcotics for pain - percocet q6 hours PRN lipase down to ~ 400 recheck lipase in AM, advance diet as tolerated Possible Alcohol Withdrawal patient with tremulousness, anxiety intermittent tachycardia Neurontin protocol Klonopin TID Anxiety/Depression/Bipolar Disorder continue home medications Hypokalemia replace K, recheck in AM Likely Narcotic Dependence as per boyfriend, patient "shops" around hospitals to get IV narcotics will d/c IV dilaudid, continue percocet for pancreatitis pancreatitis about resolved, recheck lipase in AM, but will d/c back to home medications and no new medications will be prescribed DVT ppx SCDs FULL CODE
[2016-09-09] MEDS: MONTELUKAST SOD 10 MG TAB PO SCH (21:25)
[2016-09-10] VITALS (12 sets, daily range): BP systolic 136–169; BP diastolic 89–108; PULSE 84–130; TEMP 36.5–37.1; O2SAT 91–97
[2016-09-10] MEDS ORDERED: NURSING VERBAL MED ORDER ONE (02:15)
[2016-09-10] MEDS ORDERED: LORAZEPAM INJ 1 MG in SYRINGE 0.5 ML IV STA (02:19)
[2016-09-10] MEDS: LEVALBUTEROL 1.25MG/0.5ML NEB INH SCH ×4 (03:00→18:55)
[2016-09-10] MEDS: IPRATROPIUM BROMIDE NEB SOLN 0.02% 2.5 ML VIAL INH SCH ×4 (03:00→18:55)
[2016-09-10] MEDS: OXYCODONE/ACETAMINOPHEN 5-325 TAB PO PRN ×3 (03:28→16:39)
[2016-09-10] MEDS: GABAPENTIN 1200MG LOADING DOSE PO SCH (03:29)
[2016-09-10] MEDS ORDERED: LORAZEPAM INJ 2 MG in SYRINGE 1 ML IV STA (05:12)
[2016-09-10] MEDS: SODIUM CHLORIDE 0.9% 1000ML 1,000 ML IV SCH ×3 (05:25→21:16)
[2016-09-10 07:53] LABS: MEAN CELL VOLUME 82.2 fL (80-100); MEAN CORPUSCULAR HEMOGLOBIN 27.5 pg (25-34); MEAN CORPUSCULAR HGB CONC 33.4 g/dl (32-36); MEAN PLATELET VOLUME 9.6 fL (7.4-10.4); PLATELET COUNT 235 K/uL (130-400); RED BLOOD COUNT 3.53 M/uL (4.2-5.4); WHITE BLOOD COUNT 5.51 K/uL (4.8-10.8)
[2016-09-10 08:18] LABS: BLOOD UREA NITROGEN < 1 mg/dl (7-18); CALCIUM 7.8 mg/dl (8.5-10.1); CARBON DIOXIDE 20 mmol/L (21-32); CHLORIDE 108 mmol/L (98-107); CREATININE 0.64 mg/dl (0.60-1.20); GLUCOSE 299 mg/dl (70-99); MAGNESIUM 1.9 mg/dl (1.8-2.4); POTASSIUM 3.4 mmol/L (3.5-5.1); SODIUM 141 mmol/L (136-145)
[2016-09-10] MEDS: THIAMINE HCL 100 MG TAB PO SCH (08:54)
[2016-09-10] MEDS: MULTIVITAMIN TAB PO SCH (08:54)
[2016-09-10] MEDS: MAGNESIUM OXIDE 400 MG TAB PO SCH (08:55)
[2016-09-10] MEDS: GABAPENTIN 600MG Q12H DOSE PO SCH ×2 (08:55→20:50)
[2016-09-10] MEDS: INSULIN ASPART 100 UNITS/ML 3 ML PEN SC SCH ×4 (08:56→21:22)
[2016-09-10] MEDS: NICOTINE 7 MG/24 HR TDSY TD SCH (08:58)
[2016-09-10] MEDS: CLONAZEPAM 1 MG TAB PO SCH ×3 (09:00→20:59)
[2016-09-10] MEDS: ENOXAPARIN 40 MG/0.4 ML SYR SQ SCH (09:04)
[2016-09-10] MEDS: PANTOprazole SOD 40 MG TAB PO SCH (10:00)
[2016-09-10] MEDS ORDERED: POTASSIUM CHLR 10 MEQ / WTR 10 MEQ in PREMIXED WATER 100 ML IV ONE (10:15)
[2016-09-10] MEDS ORDERED: PHARMACY GLYCEMIC MGMT CONSULT PRN (13:01)
--- NOTE | 2016-09-10 13:08 | Progress Note ---
Subjective Date of Service: Sep 10, 2016. Subjective Pt evaluation today including: conversation w/ patient, physical exam, lab review, review of studies, review of inpatient medication list Saw/examined the patient in room 284 c/o abdominal pain tolerated some clears, but the pain worsened with this has only required percocet once every 6 hours did require some ativan last night denies nausea/vomiting/diarrhea Problem List Medical Problems: (1) Hypokalemia Status: Acute (2) Left flank pain Status: Acute (3) Non-cardiac chest pain Status: Acute (4) Non-cardiac chest pain Status: Acute (5) Pacemaker malfunction Status: Acute (6) Pancreatitis Status: Acute (7) Precordial chest pain Status: Acute (8) Pyelonephritis Status: Acute (9) Shortness of breath Status: Acute (10) Transaminitis Status: Acute (11) Upper respiratory infection Status: Acute Review of Systems Respiratory: No cough, No shortness of breath, No sputum Cardiac: No chest pain Abdomen: + pain, No diarrhea, No nausea, No vomiting Medications Current Inpatient Medications Medications (Trade) Dose Ordered Sig/Veronica Route Start Time Stop Time Status Last Admin Dose Admin Al Hydrox/Mg Hydrox/Simethicone (Maalox Max Susp) 15 ml Q4H PRN PO 09/06/16 12:15 10/06/16 12:14 Ondansetron HCl (Zofran Inj) 4 mg Q6H PRN IV 09/06/16 12:15 10/06/16 12:14 09/07/16 18:31 4 MG Albuterol/ Ipratropium (Combivent Respimat Inh) 2 puffs QID PRN INH 09/06/16 12:15 10/06/16 12:14 Montelukast Sodium (Singulair Tab) 10 mg HS PO 09/06/16 21:00 10/06/16 20:59 09/09/16 21:25 10 MG Magnesium Oxide (Mag-Ox Tab) 400 mg DAILY PO 09/07/16 09:00 10/07/16 08:59 09/10/16 08:55 400 MG Glucose (Glucose 40% Gel) 15-30 GRAMS 15 GRAMS... UD PRN PO 09/06/16 15:30 10/06/16 15:29 Glucose (Glucose Chew Tab) 4-8 Tablets 4 Tabl... UD PRN PO 09/06/16 15:30 10/06/16 15:29 Dextrose (Dextrose 50% 50ML Syringe) 25-50ML OF 50% DW IV FOR... UD PRN IV 09/06/16 15:30 10/06/16 15:29 Glucagon (Glucagon Inj) 1 mg UD PRN SQ 09/06/16 15:30 10/06/16 15:29 Miscellaneous Information (Order Awaiting Action) 1 ea QS N/A 09/06/16 16:00 10/06/16 15:59 Clonazepam (Klonopin Tab) 1 mg TID PO 09/07/16 17:00 09/10/16 09:00 1 MG Nicotine (Nicoderm Cq 7 Mg Patch) 1 patch QAM TD 09/08/16 09:00 10/08/16 08:59 09/10/16 08:58 1 PATCH Miscellaneous (Remove Nicoderm Patch) 1 ea HS N/A 09/08/16 21:00 10/08/16 20:59 Folic Acid (Folvite Tab) 1 mg QAM PO 09/08/16 09:00 10/08/16 08:59 09/10/16 08:55 1 MG Multivitamins (Multivitamin Tab) 1 tab QAM PO 09/08/16 09:00 10/08/16 08:59 09/10/16 08:54 1 TAB Thiamine HCl (Vitamin B-1 Tab) 100 mg QAM PO 09/09/16 09:00 10/09/16 08:59 09/10/16 08:54 100 MG Ipratropium [place] (Atrovent 0.02% 0.5MG/2.5ML Neb) 0.5 mg Q4H PRN INH 09/08/16 00:15 10/08/16 00:14 Levalbuterol (Xopenex 1.25MG/ 0.5ML Neb) 1.25 mg Q4H PRN INH 09/08/16 00:15 10/08/16 00:14 Ioversol (Optiray 320) 100 ml UD PRN IV 09/08/16 01:00 09/12/16 00:59 Enoxaparin Sodium (Lovenox Inj) 40 mg QAM SQ 09/08/16 09:00 10/08/16 08:59 09/10/16 09:04 40 MG Acetaminophen (Tylenol Tab) 650 mg Q4H PRN PO 09/08/16 01:00 10/08/16 00:59 Ipratropium [place] (Atrovent 0.02% 0.5MG/2.5ML Neb) 0.5 mg Q6R INH 09/08/16 03:00 10/08/16 02:59 09/10/16 07:43 0.5 MG Levalbuterol (Xopenex 1.25MG/ 0.5ML Neb) 1.25 mg Q6R INH 09/08/16 03:00 10/08/16 02:59 09/10/16 07:43 1.25 MG Lorazepam (Ativan Tab) 3 mg UD PRN PO 09/08/16 02:30 10/08/16 02:29 09/09/16 21:24 1 MG Gabapentin (Neurontin Tab) 1,200 mg TODAY@0330 PO 09/08/16 03:30 10/08/16 03:29 09/10/16 03:29 1,200 MG Gabapentin (Neurontin Tab) 600 mg Q12H PO 09/10/16 08:00 09/10/16 20:01 09/10/16 08:55 600 MG Gabapentin (Neurontin Tab) 600 mg Q24H PO 09/11/16 09:00 09/11/16 09:01 Insulin Aspart SLIDING SCALE G... ACHS SC 09/08/16 06:30 10/08/16 06:29 09/10/16 12:44 3 UNITS Sodium Chloride (Nss 1000ml) 1,000 ml @ 125 mls/hr Q8H IV 09/08/16 21:45 10/08/16 21:44 09/10/16 05:25 125 MLS/HR Pantoprazole Sodium (Protonix Tab) 40 mg QAM PO 09/10/16 09:00 10/10/16 08:59 09/10/16 10:00 40 MG Oxycodone/ Acetaminophen (Percocet 5-325mg Tab) 1 tab Q6H PRN PO 09/09/16 20:45 09/23/16 20:44 09/10/16 10:01 1 TAB Objective Vital Signs Date Time Temp Pulse Resp B/P Pulse Ox O2 Delivery O2 Flow Rate FiO2 09/10/16 12:23 37.0 97 20 147/97 94 Nasal Cannula 4.0 138/90 09/10/16 11:38 Nasal Cannula 4.0 09/10/16 08:04 36.9 94 22 136/97 94 Nasal Cannula 4.0 09/10/16 07:57 Nasal Cannula 4.0 09/10/16 07:43 101 14 95 Nasal Cannula 4.0 09/10/16 04:00 107 22 163/107 93 Nasal Cannula 3.0 09/10/16 04:00 Nasal Cannula 3.0 09/10/16 03:55 37.0 94 22 169/95 93 Nasal Cannula 2.0 09/10/16 03:49 86 14 93 Nasal Cannula 2.0 09/10/16 00:00 Nasal Cannula 2.0 09/09/16 23:14 36.8 85 22 144/90 93 Nasal Cannula 2.0 09/09/16 20:40 82 14 93 Nasal Cannula 2.0 09/09/16 20:00 Nasal Cannula 2.0 09/09/16 19:41 36.5 86 20 151/106 92 2.0 09/09/16 17:37 36.8 87 20 145/96 95 Nasal Cannula 2.0 09/09/16 16:00 Nasal Cannula 2.0 09/09/16 15:20 36.8 94 22 144/91 90 Room Air 2.0 Physical Exam General Appearance: no apparent distress ENT: + pertinent finding (edentulous) Respiratory/Chest: lungs clear, normal breath sounds, no respiratory distress, no accessory muscle use Cardiovascular: regular rate, rhythm, no edema, no murmur Abdomen: normal bowel sounds, soft, + tenderness Laboratory Results Last 24 Hours Test 09/09/16 16:16 09/09/16 20:08 09/10/16 07:25 09/10/16 07:37 Bedside Glucose 265 mg/dl 279 mg/dl 293 mg/dl White Blood Count 5.51 K/uL Red Blood Count 3.53 M/uL Hemoglobin 9.7 g/dL Hematocrit 29.0 % Mean Corpuscular Volume 82.2 fL Mean Corpuscular Hemoglobin 27.5 pg Mean Corpuscular Hemoglobin Concent 33.4 g/dl RDW Standard Deviation 54.3 fL RDW Coefficient of Variation 18.1 % Platelet Count 235 K/uL Mean Platelet Volume 9.6 fL Sodium Level 141 mmol/L Potassium Level 3.4 mmol/L Chloride Level 108 mmol/L Carbon Dioxide Level 20 mmol/L Anion Gap 13.0 mmol/L Blood Urea Nitrogen < 1 mg/dl Creatinine 0.64 mg/dl Est Creatinine Clear Calc Drug Dose 136.1 ml/min Estimated GFR () 136.8 Estimated GFR (Non- 118.1 BUN/Creatinine Ratio Random Glucose 299 mg/dl Calcium Level 7.8 mg/dl Magnesium Level 1.9 mg/dl Total Creatine Kinase 4603 U/L Lipase 627 U/L Test 09/10/16 11:48 Bedside Glucose 203 mg/dl Assessment and Plan This is a 30 year old female with 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 of SVT s/p ablation, sick sinus syndrome and paroxysmal atrial tachycardia s/p PPM, SVC stenosis s/p stenting, bipolar disorder, anxiety , DM2, tobacco use disorder, recurrent pancreatitis, hx. of cholecystectomy presents with abdominal pain Acute Pancreatitis 09/10 will continue clears for now; may need to advance diet slowly IVFs stopped IV dilaudid, use PRN percocet for pain antiemetics PRN 09/09 Lipase was elevated on presentation Abdominal CT Moderate peripancreatic infiltration and fluid consistent with acute pancreatitis. No evidence of pancreatic necrosis. No peripancreatic fluid collections. possibly secondary to EtOH use? conservative management - was NPO, now advanced to clears, IVFs, analgesics, anti-emetics as needed stopped IV Dilaudid - avoid narcotics when able Noted nursing note with boyfriend stating that she comes to [facility] to obtain narcotics for pain - Percocet q6 hours PRN lipase down to ~ 400 recheck lipase in AM, advance diet as tolerated Possible Alcohol Withdrawal patient with tremulousness, anxiety intermittent tachycardia Neurontin protocol Klonopin TID Anxiety/Depression/Bipolar Disorder continue home medications Hypokalemia replace K, recheck in AM Likely Narcotic Dependence as per boyfriend, patient "shops" around hospitals to get IV narcotics will d/c IV dilaudid, continue percocet for pancreatitis pancreatitis about resolved, recheck lipase in AM, but will d/c back to home medications and no new medications will be prescribed DVT ppx SCDs FULL CODE
[2016-09-10 13:18] LABS: COD UR NEGATIVE NG/ML (CUTOFF=50); HYDROCOD UR NEGATIVE NG/ML (CUTOFF=50); HYDROMOR UR 532 NG/ML (CUTOFF=50); MORPHINE UR NEGATIVE NG/ML (CUTOFF=50); NORHYDROCODONE CONF UR NEGATIVE NG/ML (CUTOFF=50); OXYMORPH UR 107 NG/ML (CUTOFF=50)
--- NOTE | 2016-09-10 13:18 | Pharmacy Progress Note ---
Glycemic Control Intl Consult Date of Service Sep 10, 2016. Scope Glycemic Pharmacist consulted for glycemic control and to write orders per [facility] inpatient glycemic control protocol Objective Weight (Kilograms): 81.800 Accuchecks BSG (last 24hrs): Test 09/09/16 16:16 09/09/16 20:08 09/10/16 07:25 09/10/16 07:37 Bedside Glucose 265 mg/dl (70-90) 279 mg/dl (70-90) 293 mg/dl (70-90) Random Glucose 299 mg/dl (70-99) Test 09/10/16 11:48 Bedside Glucose 203 mg/dl (70-90) Laboratory Data (last 24hrs) Test 09/10/16 07:25 Anion Gap 13.0 mmol/L BUN/Creatinine Ratio Blood Urea Nitrogen < 1 mg/dl Creatinine 0.64 mg/dl Potassium Level 3.4 mmol/L Sodium Level 141 mmol/L White Blood Count 5.51 K/uL HbA1c Test 09/07/16 06:00 Hemoglobin A1c 8.6 % (4.5-5.6) H Recent Pertinent Medications Outpatient Anti-diabetic Regimen: * Metformin 500mg PO BIDM Assessment & Plan ASSESSMENT: * 30yo T2DM female with suboptimal control as an outpatient per recent A1c. Metformin dose could be titrated upwards as tolerated for better control. * Pt with sustained moderate hyperglycemia secondary to illness, stress, and correctional insulin only (lack of prandial and basal insulin warranted) * BSGs Over the past 24hrs AM Lunch Dinner HS 09/09 208 141 265 279 09/10 293 203 * Pt is only ordered a clear liquid diet but prandial insulin is needed to prevent rise in BSGs throughout the day * AM fasting BSGs are elevated, basal insulin warranted. Will start with weight based conservative dosing for insulin naive patient with decreased PO intake. * ADA & AACE recommend a goal blood sugar range 140-180 mg/dl for the majority of critically ill & non-critically ill patients. However, more stringent targets may be selected in individual cases. Will utilize more stringent goal range of 110-140mg/dl based on age. PLAN FOR INPATIENT GLYCEMIC CONTROL: * Continue to hold outpatient oral diabetes medications * START Basal insulin with LANTUS 10 units SQ HS - first dose tonight with dinner then HS following day * Correctional Insulin with NOVOLOG per scale ACHS or Q6hrs while NPO * Goal Range: Low 110 mg/dL - High 140 mg/dL * Correction Factor: 30 mg/dL/unit * ADD Nutritional / Prandial insulin per carb ratio of 1 unit per 10 grams CHO consumed * Please note that the plan above was derived based on current level of insulin resistance and hospital stress. These recommendations are appropriate for inpatient admission only. Plan of care upon discharge will need to be reassessed to avoid potential outpatient hypo/hyperglycemia. Thank you.
[2016-09-10] MEDS: INSULIN GLARGINE SOLOSTAR 100 UNITS/ML 3 ML PEN SC SCH (20:48)
[2016-09-10] MEDS: MONTELUKAST SOD 10 MG TAB PO SCH (20:54)
[2016-09-10] MEDS: LORAZEPAM 1 MG TAB PO PRN (21:14)
[2016-09-10] MEDS ORDERED: OXYCODONE HCL IR 5 MG TAB (IMMEDIATE RELEASE) PO STA (22:40)
[2016-09-11] VITALS (8 sets, daily range): BP systolic 122–148; BP diastolic 72–91; PULSE 70–96; TEMP 36.6–37; O2SAT 93–98
[2016-09-11] MEDS: OXYCODONE/ACETAMINOPHEN 5-325 TAB PO PRN ×3 (00:31→09:52)
[2016-09-11] MEDS: LORAZEPAM 1 MG TAB PO PRN (02:28)
[2016-09-11] MEDS ORDERED: NURSING VERBAL MED ORDER ONE (02:30)
[2016-09-11] MEDS: IPRATROPIUM BROMIDE NEB SOLN 0.02% 2.5 ML VIAL INH SCH ×2 (02:40→07:19)
[2016-09-11] MEDS: LEVALBUTEROL 1.25MG/0.5ML NEB INH SCH ×2 (02:40→07:19)
[2016-09-11] MEDS: GABAPENTIN 1200MG LOADING DOSE PO SCH (03:24)
[2016-09-11] MEDS: SODIUM CHLORIDE 0.9% 1000ML 1,000 ML IV SCH ×3 (04:29→21:10)
[2016-09-11 06:02] LABS: HEMATOCRIT 30.6 % (37-47); MEAN CELL VOLUME 80.1 fL (80-100); MEAN CORPUSCULAR HEMOGLOBIN 26.7 pg (25-34); MEAN CORPUSCULAR HGB CONC 33.3 g/dl (32-36); PLATELET COUNT 250 K/uL (130-400); RED BLOOD COUNT 3.82 M/uL (4.2-5.4); WHITE BLOOD COUNT 5.27 K/uL (4.8-10.8)
[2016-09-11 06:39] LABS: BLOOD UREA NITROGEN < 1 mg/dl (7-18); CALCIUM 8.4 mg/dl (8.5-10.1); CARBON DIOXIDE 26 mmol/L (21-32); CHLORIDE 108 mmol/L (98-107); CREATININE 0.42 mg/dl (0.60-1.20); GLUCOSE 149 mg/dl (70-99); POTASSIUM 2.7 mmol/L (3.5-5.1); SODIUM 144 mmol/L (136-145)
[2016-09-11] MEDS: PANTOprazole SOD 40 MG TAB PO SCH (08:11)
[2016-09-11] MEDS: MULTIVITAMIN TAB PO SCH (08:11)
[2016-09-11] MEDS: THIAMINE HCL 100 MG TAB PO SCH (08:12)
[2016-09-11] MEDS: MAGNESIUM OXIDE 400 MG TAB PO SCH (08:12)
[2016-09-11] MEDS: CLONAZEPAM 1 MG TAB PO SCH ×3 (08:12→21:10)
[2016-09-11] MEDS: NICOTINE 7 MG/24 HR TDSY TD SCH (08:14)
[2016-09-11] MEDS: INSULIN ASPART 100 UNITS/ML 3 ML PEN SC SCH ×4 (08:23→21:15)
[2016-09-11] MEDS: ENOXAPARIN 40 MG/0.4 ML SYR SQ SCH (08:24)
[2016-09-11] MEDS: POTASSIUM CHLR 10 MEQ / WTR 10 MEQ in PREMIXED WATER 100 ML IV SCH ×4 (08:41→12:31)
[2016-09-11] MEDS ORDERED: GABAPENTIN 600MG X1 DOSE PO SCH (09:00)
[2016-09-11] MEDS ORDERED: POTASSIUM CHLORIDE 10 MEQ TABCR PO STA (09:47)
--- NOTE | 2016-09-11 10:08 | Progress Note ---
Subjective Date of Service: Sep 11, 2016. Subjective Pt evaluation today including: conversation w/ patient, physical exam, lab review, review of studies, review of inpatient medication list Saw/examined the patient in room 284 Continues to have some epigastric tenderness tolerating clears denies diarrhea/vomiting/nausea Problem List Medical Problems: (1) Hypokalemia Status: Acute (2) Left flank pain Status: Acute (3) Non-cardiac chest pain Status: Acute (4) Non-cardiac chest pain Status: Acute (5) Pacemaker malfunction Status: Acute (6) Pancreatitis Status: Acute (7) Precordial chest pain Status: Acute (8) Pyelonephritis Status: Acute (9) Shortness of breath Status: Acute (10) Transaminitis Status: Acute (11) Upper respiratory infection Status: Acute Review of Systems Constitutional: No chills, No fever Respiratory: No cough, No dyspnea at rest, No dyspnea on exertion, No hemoptysis, No shortness of breath, No sputum, No wheezing Cardiac: No chest pain, No edema, No palpitations Abdomen: + pain, No diarrhea, No nausea, No vomiting Heme: No abnormal bleeding/bruising Medications Current Inpatient Medications Medications (Trade) Dose Ordered Sig/Veronica Route Start Time Stop Time Status Last Admin Dose Admin Al Hydrox/Mg Hydrox/Simethicone (Maalox Max Susp) 15 ml Q4H PRN PO 09/06/16 12:15 10/06/16 12:14 Ondansetron HCl (Zofran Inj) 4 mg Q6H PRN IV 09/06/16 12:15 10/06/16 12:14 09/07/16 18:31 4 MG Albuterol/ Ipratropium (Combivent Respimat Inh) 2 puffs QID PRN INH 09/06/16 12:15 10/06/16 12:14 09/10/16 20:54 2 PUFFS Montelukast Sodium (Singulair Tab) 10 mg HS PO 09/06/16 21:00 10/06/16 20:59 09/10/16 20:54 10 MG Magnesium Oxide (Mag-Ox Tab) 400 mg DAILY PO 09/07/16 09:00 10/07/16 08:59 09/11/16 08:12 400 MG Glucose (Glucose 40% Gel) 15-30 GRAMS 15 GRAMS... UD PRN PO 2/18/17 15:30 10/06/16 15:29 Glucose (Glucose Chew Tab) 4-8 Tablets 4 Tabl... UD PRN PO 09/06/16 15:30 10/06/16 15:29 Dextrose (Dextrose 50% 50ML Syringe) 25-50ML OF 50% DW IV FOR... UD PRN IV 09/06/16 15:30 10/06/16 15:29 Glucagon (Glucagon Inj) 1 mg UD PRN SQ 09/06/16 15:30 10/06/16 15:29 Miscellaneous Information (Order Awaiting Action) 1 ea QS N/A 09/06/16 16:00 10/06/16 15:59 Clonazepam (Klonopin Tab) 1 mg TID PO 09/07/16 17:00 09/11/16 08:12 1 MG Nicotine (Nicoderm Cq 7 Mg Patch) 1 patch QAM TD 09/08/16 09:00 10/08/16 08:59 09/11/16 08:14 1 PATCH Miscellaneous (Remove Nicoderm Patch) 1 ea HS N/A 09/08/16 21:00 10/08/16 20:59 Folic Acid (Folvite Tab) 1 mg QAM PO 09/08/16 09:00 10/08/16 08:59 09/11/16 08:12 1 MG Multivitamins (Multivitamin Tab) 1 tab QAM PO 09/08/16 09:00 10/08/16 08:59 09/11/16 08:11 1 TAB Thiamine HCl (Vitamin B-1 Tab) 100 mg QAM PO 09/09/16 09:00 10/09/16 08:59 09/11/16 08:12 100 MG Ioversol (Optiray 320) 100 ml UD PRN IV 09/08/16 01:00 09/12/16 00:59 Enoxaparin Sodium (Lovenox Inj) 40 mg QAM SQ 09/08/16 09:00 10/08/16 08:59 09/11/16 08:24 40 MG Acetaminophen (Tylenol Tab) 650 mg Q4H PRN PO 09/08/16 01:00 10/08/16 00:59 Lorazepam (Ativan Tab) 3 mg UD PRN PO 09/08/16 02:30 10/08/16 02:29 09/11/16 02:28 1 MG Gabapentin (Neurontin Tab) 1,200 mg TODAY@0330 PO 09/08/16 03:30 10/08/16 03:29 09/11/16 03:24 1,200 MG Insulin Aspart SLIDING SCALE G... ACHS SC 09/08/16 06:30 10/08/16 06:29 09/11/16 08:23 7 UNITS Sodium Chloride (Nss 1000ml) 1,000 ml @ 125 mls/hr Q8H IV 09/08/16 21:45 10/08/16 21:44 09/11/16 04:29 125 MLS/HR Pantoprazole Sodium (Protonix Tab) 40 mg QAM PO 09/10/16 09:00 10/10/16 08:59 09/11/16 08:11 40 MG Miscellaneous Information (Consult Glycemic Management Pharmacy) 1 ea UD PRN N/A 09/10/16 13:01 10/10/16 13:00 Insulin Glargine (Lantus Solostar Pen) 10 unit HS SC 09/10/16 17:00 10/10/16 16:59 09/10/16 20:48 10 UNIT Oxycodone/ Acetaminophen (Percocet 5-325mg Tab) 1 tab Q4H PRN PO 09/11/16 02:30 09/25/16 02:29 09/11/16 09:52 1 TAB Ipratropium [place] (Atrovent Hfa Inhaler) 2 puffs Q6 INH 09/11/16 12:00 10/11/16 11:59 Levalbuterol 2 puffs 2 puffs Q6 INH 09/11/16 12:00 10/11/16 11:59 Potassium Chloride/Prmx (Kcl 10 Meq / Wtr/Premixed Water) 100 ml @ 100 mls/hr TODAY@0800,0900,1000,1100 IV 09/11/16 08:00 09/11/16 15:00 09/11/16 09:50 100 MLS/HR Potassium Chloride (Klor-Con M10) 20 meq NOW STAT PO 09/11/16 09:47 09/11/16 09:48 UNV Objective Vital Signs Date Time Temp Pulse Resp B/P Pulse Ox O2 Delivery O2 Flow Rate FiO2 09/11/16 08:03 36.9 80 22 136/87 94 Room Air 09/11/16 07:58 94 Nasal Cannula 2.0 09/11/16 07:15 70 12 98 Nasal Cannula 2.0 09/11/16 04:00 36.7 84 20 146/89 95 3.0 09/11/16 04:00 Nasal Cannula 4.0 09/11/16 02:40 81 14 96 Nasal Cannula 4.0 09/11/16 00:30 Nasal Cannula 4.0 09/10/16 23:45 37.1 84 20 153/108 94 Nasal Cannula 4.0 09/10/16 21:02 37.0 130 36 151/103 91 4.0 09/10/16 20:00 Nasal Cannula 4.0 09/10/16 19:35 36.5 98 20 136/90 95 Nasal Cannula 4.0 09/10/16 18:55 111 14 93 Nasal Cannula 4.0 09/10/16 15:52 Nasal Cannula 4.0 09/10/16 14:55 37.1 95 20 145/92 93 Nasal Cannula 2.0 138/89 09/10/16 14:30 97 14 97 Nasal Cannula 3.0 09/10/16 12:23 37.0 97 20 147/97 94 Nasal Cannula 4.0 138/90 09/10/16 11:38 Nasal Cannula 4.0 Physical Exam General Appearance: no apparent distress ENT: + pertinent finding (edentulous) Respiratory/Chest: chest non-tender, no respiratory distress, no accessory muscle use, + decreased breath sounds Cardiovascular: regular rate, rhythm, no edema, no murmur Abdomen: normal bowel sounds, soft, + tenderness (mild tenderness with deep palpation) Extremities: normal inspection, no pedal edema Neurologic/Psychiatric: no motor/sensory deficits, alert, normal mood/affect Skin: normal color Lymphatic: no adenopathy Laboratory Results Last 24 Hours Test 09/10/16 11:48 09/10/16 16:22 09/10/16 20:05 09/11/16 05:49 Bedside Glucose 203 mg/dl 233 mg/dl 177 mg/dl White Blood Count 5.27 K/uL Red Blood Count 3.82 M/uL Hemoglobin 10.2 g/dL Hematocrit 30.6 % Mean Corpuscular Volume 80.1 fL Mean Corpuscular Hemoglobin 26.7 pg Mean Corpuscular Hemoglobin Concent 33.3 g/dl RDW Standard Deviation 52.0 fL RDW Coefficient of Variation 17.9 % Platelet Count 250 K/uL Mean Platelet Volume 9.0 fL Sodium Level 144 mmol/L Potassium Level 2.7 mmol/L Chloride Level 108 mmol/L Carbon Dioxide Level 26 mmol/L Anion Gap 10.0 mmol/L Blood Urea Nitrogen < 1 mg/dl Creatinine 0.42 mg/dl Est Creatinine Clear Calc Drug Dose 207.3 ml/min Estimated GFR () > 150.0 Estimated GFR (Non- 135.6 BUN/Creatinine Ratio Random Glucose 149 mg/dl Lactic Acid Level 1.0 mmol/L Calcium Level 8.4 mg/dl Magnesium Level 2.0 mg/dl Total Creatine Kinase 2291 U/L Lipase 455 U/L Test 09/11/16 07:47 Bedside Glucose 120 mg/dl Assessment and Plan This is a 30 year old female with 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 of SVT s/p ablation, sick sinus syndrome and paroxysmal atrial tachycardia s/p PPM, SVC stenosis s/p stenting, bipolar disorder, anxiety , DM2, tobacco use disorder, recurrent pancreatitis, hx. of cholecystectomy presents with abdominal pain Acute Pancreatitis 09/11 patient continues to have some epigastric tenderness lipase trending down no MRIs can be performed due to pacemaker changed percocet to hydrocodone PRN q4 will keep IVFs the same as she may be fluid overloaded advance diet to low fat check CXR and BNP check lipids/triglycerides possible d/c home in AM 09/10 will continue clears for now; may need to advance diet slowly IVFs stopped IV dilaudid, use PRN percocet for pain antiemetics PRN 09/09 Lipase was elevated on presentation Abdominal CT Moderate peripancreatic infiltration and fluid consistent with acute pancreatitis. No evidence of pancreatic necrosis. No peripancreatic fluid collections. possibly secondary to EtOH use? conservative management - was NPO, now advanced to clears, IVFs, analgesics, anti-emetics as needed stopped IV Dilaudid - avoid narcotics when able Noted nursing note with boyfriend stating that she comes to [facility] to obtain narcotics for pain - Percocet q6 hours PRN lipase down to ~ 400 recheck lipase in AM, advance diet as tolerated Possible Alcohol Withdrawal patient with tremulousness, anxiety intermittent tachycardia Neurontin protocol Klonopin TID Anxiety/Depression/Bipolar Disorder continue home medications Hypokalemia replace K, recheck in AM Likely Narcotic Dependence as per boyfriend, patient "shops" around hospitals to get IV narcotics will d/c IV dilaudid, continue percocet for pancreatitis pancreatitis about resolved, recheck lipase in AM, but will d/c back to home medications and no new medications will be prescribed DVT ppx SCDs FULL CODE
[2016-09-11 10:11] LABS: CHOLESTEROL/HDL RATIO 3.6
--- NOTE | 2016-09-11 10:30 | DIAGNOSTIC IMAGING REPORT ---
CHEST 2 VIEWS ROUTINE CLINICAL HISTORY: Pancreatitis. Evaluate for fluid overload. COMPARISON STUDY: Chest radiograph and chest CT September 08, 2016. FINDINGS: Mild cardiomegaly is unchanged. There is no pneumothorax or pleural effusion. Linear opacities are suggestive atelectasis. An SVC stent is present. There is pulmonary vascular congestion without overt pulmonary edema. IMPRESSION: 1. Pulmonary vascular congestion without overt pulmonary edema. 2. Mild cardiomegaly which is unchanged. 3. Linear opacities suggestive of atelectasis. Electronically signed by: Jimmy Payton M.D. 09/11/2016 10:29 AM Dictated Date/Time: 09/11/2016 10:25 AM
[2016-09-11] MEDS: IPRATROPIUM BROMIDE HFA INHALER INH SCH ×2 (12:34→17:32)
[2016-09-11] MEDS: LEValbuterol HFA 15GM INHALER INH SCH ×2 (12:34→17:32)
[2016-09-11] MEDS: HYDROCODONE/ACETAMOPHEN 5/325MG TAB PO PRN ×3 (14:05→22:40)
[2016-09-11] MEDS: MONTELUKAST SOD 10 MG TAB PO SCH (21:10)
[2016-09-11] MEDS: INSULIN GLARGINE SOLOSTAR 100 UNITS/ML 3 ML PEN SC SCH (21:15)
[2016-09-12] VITALS (8 sets, daily range): BP systolic 115–146; BP diastolic 72–107; PULSE 70–103; TEMP 36.3–37.1; O2SAT 92–98
[2016-09-12] MEDS ORDERED: MoRPHine SULFATE 2 MG/ML CARP IV STA (00:38)
[2016-09-12] MEDS: IPRATROPIUM BROMIDE HFA INHALER INH SCH ×3 (00:51→12:01)
[2016-09-12] MEDS: LEValbuterol HFA 15GM INHALER INH SCH ×3 (00:51→12:02)
[2016-09-12] MEDS: HYDROCODONE/ACETAMOPHEN 5/325MG TAB PO PRN ×3 (02:38→11:59)
[2016-09-12] MEDS: GABAPENTIN 1200MG LOADING DOSE PO SCH (03:38)
[2016-09-12] MEDS: LORAZEPAM 1 MG TAB PO PRN (05:07)
[2016-09-12] MEDS: SODIUM CHLORIDE 0.9% 1000ML 1,000 ML IV SCH (05:10)
[2016-09-12 06:37] LABS: HEMATOCRIT 34.1 % (37-47); MEAN CORPUSCULAR HEMOGLOBIN 27.8 pg (25-34); MEAN CORPUSCULAR HGB CONC 34.3 g/dl (32-36); MEAN PLATELET VOLUME 9.3 fL (7.4-10.4); PLATELET COUNT 286 K/uL (130-400); RED BLOOD COUNT 4.21 M/uL (4.2-5.4); WHITE BLOOD COUNT 6.71 K/uL (4.8-10.8)
[2016-09-12 07:14] LABS: BUN/CREATININE RATIO 5.3 (10-20); CALCIUM 8.4 mg/dl (8.5-10.1); CREATININE 0.49 mg/dl (0.60-1.20); MAGNESIUM 1.9 mg/dl (1.8-2.4)
[2016-09-12] MEDS: CLONAZEPAM 1 MG TAB PO SCH ×2 (07:48→14:57)
[2016-09-12] MEDS: THIAMINE HCL 100 MG TAB PO SCH (07:49)
[2016-09-12] MEDS: PANTOprazole SOD 40 MG TAB PO SCH (07:49)
[2016-09-12] MEDS: MAGNESIUM OXIDE 400 MG TAB PO SCH (07:49)
[2016-09-12] MEDS: MULTIVITAMIN TAB PO SCH (07:49)
[2016-09-12] MEDS: NICOTINE 7 MG/24 HR TDSY TD SCH (07:50)
[2016-09-12] MEDS: ENOXAPARIN 40 MG/0.4 ML SYR SQ SCH (07:50)
[2016-09-12] MEDS: POTASSIUM CHLR 10 MEQ / WTR 10 MEQ in PREMIXED WATER 100 ML IV SCH ×4 (08:35→13:30)
[2016-09-12] MEDS: INSULIN ASPART 100 UNITS/ML 3 ML PEN SC SCH ×3 (08:40→16:30)
--- NOTE | 2016-09-12 12:03 | Progress Note ---
Subjective Date of Service: Sep 12, 2016. Subjective Pt evaluation today including: conversation w/ patient, physical exam, lab review, review of studies, review of inpatient medication list Saw/examined the patient in room 284 She tolerated breakfast, low fat diet Pain persists, but patient is resting comfortably Problem List Medical Problems: (1) Hypokalemia Status: Acute (2) Left flank pain Status: Acute (3) Non-cardiac chest pain Status: Acute (4) Non-cardiac chest pain Status: Acute (5) Pacemaker malfunction Status: Acute (6) Pancreatitis Status: Acute (7) Precordial chest pain Status: Acute (8) Pyelonephritis Status: Acute (9) Shortness of breath Status: Acute (10) Transaminitis Status: Acute (11) Upper respiratory infection Status: Acute Review of Systems Constitutional: No chills, No fever Respiratory: No cough, No shortness of breath, No sputum Cardiac: No chest pain, No claudication, No edema, No orthopnea, No palpitations Abdomen: + pain, No GI bleeding, No constipation, No diarrhea, No nausea, No vomiting Medications Current Inpatient Medications Medications (Trade) Dose Ordered Sig/Veronica Route Start Time Stop Time Status Last Admin Dose Admin Al Hydrox/Mg Hydrox/Simethicone (Maalox Max Susp) 15 ml Q4H PRN PO 09/06/16 12:15 10/06/16 12:14 Ondansetron HCl (Zofran Inj) 4 mg Q6H PRN IV 09/06/16 12:15 10/06/16 12:14 09/07/16 18:31 4 MG Albuterol/ Ipratropium (Combivent Respimat Inh) 2 puffs QID PRN INH 09/06/16 12:15 10/06/16 12:14 09/10/16 20:54 2 PUFFS Montelukast Sodium (Singulair Tab) 10 mg HS PO 09/06/16 21:00 10/06/16 20:59 09/11/16 21:10 10 MG Magnesium Oxide (Mag-Ox Tab) 400 mg DAILY PO 09/07/16 09:00 10/07/16 08:59 09/12/16 07:49 400 MG Glucose (Glucose 40% Gel) 15-30 GRAMS 15 GRAMS... UD PRN PO 2/18/17 15:30 10/06/16 15:29 Glucose (Glucose Chew Tab) 4-8 Tablets 4 Tabl... UD PRN PO 09/06/16 15:30 10/06/16 15:29 Dextrose (Dextrose 50% 50ML Syringe) 25-50ML OF 50% DW IV FOR... UD PRN IV 09/06/16 15:30 10/06/16 15:29 Glucagon (Glucagon Inj) 1 mg UD PRN SQ 09/06/16 15:30 10/06/16 15:29 Miscellaneous Information (Order Awaiting Action) 1 ea QS N/A 09/06/16 16:00 10/06/16 15:59 Clonazepam (Klonopin Tab) 1 mg TID PO 09/07/16 17:00 09/12/16 07:48 1 MG Nicotine (Nicoderm Cq 7 Mg Patch) 1 patch QAM TD 09/08/16 09:00 10/08/16 08:59 09/11/16 08:14 1 PATCH Miscellaneous (Remove Nicoderm Patch) 1 ea HS N/A 09/08/16 21:00 10/08/16 20:59 09/11/16 21:16 1 EA Folic Acid (Folvite Tab) 1 mg QAM PO 09/08/16 09:00 10/08/16 08:59 09/12/16 07:50 1 MG Multivitamins (Multivitamin Tab) 1 tab QAM PO 09/08/16 09:00 10/08/16 08:59 09/12/16 07:49 1 TAB Thiamine HCl (Vitamin B-1 Tab) 100 mg QAM PO 09/09/16 09:00 10/09/16 08:59 09/12/16 07:49 100 MG Enoxaparin Sodium (Lovenox Inj) 40 mg QAM SQ 09/08/16 09:00 10/08/16 08:59 09/11/16 08:24 40 MG Acetaminophen (Tylenol Tab) 650 mg Q4H PRN PO 09/08/16 01:00 10/08/16 00:59 Lorazepam (Ativan Tab) 3 mg UD PRN PO 09/08/16 02:30 10/08/16 02:29 09/12/16 05:07 2 MG Gabapentin (Neurontin Tab) 1,200 mg TODAY@0330 PO 09/08/16 03:30 10/08/16 03:29 09/12/16 03:38 1,200 MG Insulin Aspart (novoLOG ASPART) SLIDING SCALE G... ACHS SC 09/08/16 06:30 10/08/16 06:29 09/12/16 08:40 10 UNITS Pantoprazole Sodium (Protonix Tab) 40 mg QAM PO 09/10/16 09:00 10/10/16 08:59 09/12/16 07:49 40 MG Miscellaneous Information (Consult Glycemic Management Pharmacy) 1 ea UD PRN N/A 09/10/16 13:01 10/10/16 13:00 Insulin Glargine (Lantus Solostar Pen) 10 unit HS SC 09/10/16 17:00 10/10/16 16:59 09/11/16 21:15 10 UNIT Ipratropium Horace (Atrovent Hfa Inhaler) 2 puffs Q6 INH 09/11/16 12:00 10/11/16 11:59 09/11/16 17:32 2 PUFFS Levalbuterol (Xopenex Hfa Inhaler) 2 puffs Q6 INH 09/11/16 12:00 10/11/16 11:59 09/11/16 17:32 2 PUFFS Acetaminophen/ Hydrocodone Bitart 1 tab 1 tab Q4 PRN PO 09/11/16 10:15 09/25/16 10:14 09/12/16 07:49 1 TAB Potassium Chloride/Prmx (Kcl 10 Meq / Wtr/Premixed Water) 100 ml @ 100 mls/hr Q1H IV 09/12/16 08:00 09/12/16 11:59 09/12/16 11:20 100 MLS/HR Objective Vital Signs Date Time Temp Pulse Resp B/P Pulse Ox O2 Delivery O2 Flow Rate FiO2 09/12/16 11:27 37.0 103 16 142/106 94 Room Air 09/12/16 08:00 Nasal Cannula 2.0 09/12/16 07:39 36.5 83 16 125/87 94 09/12/16 07:32 36.3 70 16 146/72 98 09/12/16 06:00 36.9 86 20 140/101 92 Nasal Cannula 2.0 09/12/16 04:00 Nasal Cannula 2.0 09/12/16 04:00 37.1 83 20 141/106 96 Nasal Cannula 2.0 09/12/16 00:30 Nasal Cannula 2.0 09/12/16 00:14 86 145/107 93 Nasal Cannula 2.0 09/11/16 20:00 Room Air 09/11/16 19:25 36.8 95 18 148/72 93 09/11/16 16:00 Room Air 09/11/16 15:16 37.0 96 18 131/91 94 09/11/16 12:35 36.6 84 18 122/80 94 Nasal Cannula 2.0 Physical Exam General Appearance: no apparent distress ENT: + pertinent finding (edentulous) Respiratory/Chest: lungs clear, normal breath sounds, no respiratory distress, no accessory muscle use Cardiovascular: regular rate, rhythm, no edema, no murmur Abdomen: normal bowel sounds, soft, + tenderness Neurologic/Psychiatric: no motor/sensory deficits, alert, normal mood/affect Laboratory Results Last 24 Hours Test 09/11/16 12:07 09/11/16 16:40 09/11/16 20:09 09/12/16 06:30 Bedside Glucose 231 mg/dl 111 mg/dl 178 mg/dl White Blood Count 6.71 K/uL Red Blood Count 4.21 M/uL Hemoglobin 11.7 g/dL Hematocrit 34.1 % Mean Corpuscular Volume 81.0 fL Mean Corpuscular Hemoglobin 27.8 pg Mean Corpuscular Hemoglobin Concent 34.3 g/dl RDW Standard Deviation 52.6 fL RDW Coefficient of Variation 18.1 % Platelet Count 286 K/uL Mean Platelet Volume 9.3 fL Nucleated RBC Absolute Count (auto) 0.03 K/uL Nucleated Red Blood Cells % 0.4 % Sodium Level 141 mmol/L Potassium Level 3.0 mmol/L Chloride Level 105 mmol/L Carbon Dioxide Level 24 mmol/L Anion Gap 12.0 mmol/L Blood Urea Nitrogen 3 mg/dl Creatinine 0.49 mg/dl Est Creatinine Clear Calc Drug Dose 175.2 ml/min Estimated GFR () 149.4 Estimated GFR (Non- 128.9 BUN/Creatinine Ratio 5.3 Random Glucose 169 mg/dl Calcium Level 8.4 mg/dl Magnesium Level 1.9 mg/dl Total Creatine Kinase 870 U/L Lipase 452 U/L Test 09/12/16 07:33 09/12/16 11:24 Bedside Glucose 165 mg/dl 178 mg/dl Assessment and Plan This is a 30 year old female with 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 of SVT s/p ablation, sick sinus syndrome and paroxysmal atrial tachycardia s/p PPM, SVC stenosis s/p stenting, bipolar disorder, anxiety , DM2, tobacco use disorder, recurrent pancreatitis, hx. of cholecystectomy presents with abdominal pain Acute Pancreatitis 09/12 patient feels much better and tolerated her PO diet plan is to discharge patient home no narcotics to be given to the patient on discharge outpatient EUS and ERCP Follow-up with Dr. Grace on September 19 @ 12:30PM 09/11 patient continues to have some epigastric tenderness lipase trending down no MRIs can be performed due to pacemaker changed percocet to hydrocodone PRN q4 will keep IVFs the same as she may be fluid overloaded advance diet to low fat check CXR and BNP check lipids/triglycerides possible d/c home in AM 09/10 will continue clears for now; may need to advance diet slowly IVFs stopped IV dilaudid, use PRN percocet for pain antiemetics PRN 09/09 Lipase was elevated on presentation Abdominal CT Moderate peripancreatic infiltration and fluid consistent with acute pancreatitis. No evidence of pancreatic necrosis. No peripancreatic fluid collections. possibly secondary to EtOH use? conservative management - was NPO, now advanced to clears, IVFs, analgesics, anti-emetics as needed stopped IV Dilaudid - avoid narcotics when able Noted nursing note with boyfriend stating that she comes to [facility] to obtain narcotics for pain - Percocet q6 hours PRN lipase down to ~ 400 recheck lipase in AM, advance diet as tolerated Possible Alcohol Withdrawal patient with tremulousness, anxiety intermittent tachycardia go home with home Klonopin dose Anxiety/Depression/Bipolar Disorder continue home medications Hypokalemia replace K, recheck in AM Likely Narcotic Dependence as per boyfriend, patient "shops" around hospitals to get IV narcotics will d/c IV dilaudid, continue percocet for pancreatitis pancreatitis about resolved, recheck lipase in AM, but will d/c back to home medications and no new medications will be prescribed DVT ppx SCDs FULL CODE
--- NOTE | 2016-09-12 12:42 | Pharmacy Progress Note ---
Glycemic Control: Progress Nt Date of Service Sep 12, 2016. Scope Glycemic Pharmacist consulted by Dr Bradley on 09/10/16 for glycemic control and to write orders per [facility] inpatient glycemic control protocol. Objective Accuchecks BSG (last 24hrs): Test 09/11/16 16:40 09/11/16 20:09 09/12/16 06:30 09/12/16 07:33 Bedside Glucose 111 mg/dl (70-90) 178 mg/dl (70-90) 165 mg/dl (70-90) Random Glucose 169 mg/dl (70-99) Test 09/12/16 11:24 Bedside Glucose 178 mg/dl (70-90) Laboratory Data (last 24hrs) Test 09/12/16 06:30 Anion Gap 12.0 mmol/L BUN/Creatinine Ratio 5.3 Blood Urea Nitrogen 3 mg/dl Creatinine 0.49 mg/dl Potassium Level 3.0 mmol/L Sodium Level 141 mmol/L White Blood Count 6.71 K/uL HbA1c: Test 09/07/16 06:00 Hemoglobin A1c 8.6 % (4.5-5.6) H Recent Pertinent Medications Outpatient Anti-diabetic Regimen: * Metformin 500 mg PO BIDM The patient is currently receiving: * Basal insulin: Lantus 10 units SQ HS * Correctional Insulin: Novolog Correction per scale ACHS Goal Range: Low 110 mg/dL - High 140 mg/dL Correction Factor: 30 mg/dL/unit * Prandial insulin: Per carb ratio of 1 unit per 10 grams CHO consumed * Oral Agents: on hold Assessment & Plan ASSESSMENT: 09/10/16 * 30yo T2DM female with suboptimal control as an outpatient per recent A1c. Metformin dose could be titrated upwards as tolerated for better control. * Pt with sustained moderate hyperglycemia secondary to illness, stress, and correctional insulin only (lack of prandial and basal insulin warranted) * Pt is only ordered a clear liquid diet but prandial insulin is needed to prevent rise in BSGs throughout the day * AM fasting BSGs are elevated, basal insulin warranted. Will start with weight based conservative dosing for insulin naive patient with decreased PO intake. * ADA & AACE recommend a goal blood sugar range 140-180 mg/dl for the majority of critically ill & non-critically ill patients. However, more stringent targets may be selected in individual cases. Will utilize more stringent goal range of 110-140mg/dl based on age. 09/12/16 * Patient received 40 units of insulin over the past 24 hours * Diet has advanced from clears to diabetic diet/low fat and patient has been tolerating diet well * Fasting BSG 165 mg/dL this AM- a slight increase from yesterday * Considering increase Lantus by 20% tomorrow night if patient remains admitted * Continue current Novolog and reassess in the AM PLAN FOR INPATIENT GLYCEMIC CONTROL: * Hold outpatient oral diabetes medications as patient still having some pain * Continue Lantus 10 units SQ HS * Continue correction factor of 30 mg/dl/unit * Continue carb ratio of 1 unit per 10 grams CHO consumed * Continue goal range to Low 110 mg/dL - High 140 mg/dL RECOMMENDATIONS FOR DISCHARGE: * Titrate Metformin to 1000 mg PO BIDM as tolerated * Follow up with PCP * Please note that the plan above was derived based on current level of insulin resistance and hospital stress. These recommendations are appropriate for inpatient admission only. Plan of care upon discharge will need to be reassessed to avoid potential outpatient hypo/hyperglycemia. Thank you.
[2016-09-12] MEDS ORDERED: FLV1 PO (12:49)
[2016-09-12] MEDS ORDERED: METF1000 PO (12:49)
[2016-09-12] MEDS ORDERED: MULT-589 PO (12:49)
[2016-09-12] MEDS ORDERED: THM100 PO (12:49)
--- NOTE | 2016-09-12 12:52 | Discharge Instructions ---
Discharge Instructions Admission Reason for Admission: Hypokalemia,Pancreatitis Discharge Discharge Diagnosis / Problem: Acute Pancreatitis Discharge Goals Goal(s): Decrease discomfort, Improve function Activity Recommendations Activity Limitations: resume your previous activity . Instructions / Follow-Up Instructions / Follow-Up Please follow-up with Dr. Grace on September 19 @ 12:30PM You should have your blood work rechecked for potassium You will be discharged on metformin 1000mg twice daily Current Hospital Diet Patient's current hospital diet: Low Fat Diet, Diabetes Type 2 Diet Discharge Diet Recommended Diet: Diabetes Type 2 Diet, Low Fat Diet Pending Studies Studies pending at discharge: no Laboratory Results Hemoglobin A1c Test 09/07/16 06:00 Range/Units Estimated Average Glucose 200 mg/dl Hemoglobin A1c 8.6 H 4.5-5.6 % Lipid Panel Test 09/11/16 05:49 Range/Units Triglycerides Level 102 0-150 mg/dl Cholesterol Level 109 0-200 mg/dl HDL Cholesterol 30 mg/dl Cholesterol/HDL Ratio 3.6 LDL Cholesterol, Calculated 59 mg/dl Medical Emergencies . Who to Call and When: Medical Emergencies: If at any time you feel your situation is an emergency, please call 911 immediately. . Non-Emergent Contact Non-Emergency issues call your: Primary Care Provider . . "Provider Documentation" section prepared by Tim Bradley. VTE Core Measure Inpt VTE Proph given/why not?: Enoxaparin (Lovenox)SQ
--- NOTE | 2016-09-12 12:53 | Discharge Summary ---
Discharge Summary Date of Service Sep 12, 2016. Discharge Summary Admission Date: Sep 06, 2016 at 12:10 Discharge Date: Sep 12, 2016 Discharge Disposition: Home Principal Diagnosis: Acute Pancreatitis Hypokalemia Medication Reconciliation New Medications: Folic Acid (Folic Acid) 1 Mg Tab 1 MG PO QAM for 30 Days, #30 TAB Multivitamins (Daily Katty) 1 Tab Tab 1 TAB PO QAM for 30 Days, #30 TAB Thiamine HCl (Vitamin B-1) 100 Mg Tab 100 MG PO QAM for 30 Days, #30 TAB Changed Medications: Metformin Hcl (Glucophage) 1,000 Mg Tab 1 TAB PO BID for 30 Days, #60 TAB 5 Refills (Changed from: Metformin Hcl ( Glucophage) 500 Mg Tab 500 Mg PO BID) Continued Medications: Aspirin (Aspirin Ec) 81 Mg Tab 81 MG PO DAILY Atorvastatin (Lipitor) 10 Mg Tab 10 MG PO DAILY, TAB Clonazepam (Klonopin) 1 Mg Tab 1 MG PO BID, #30 Esomeprazole Magnesium (Nexium) 40 Mg Cap 40 MG PO DAILY, CAP Fluticasone Furoate-Vilanterol (Breo Ellipta) 1 Inh Inh 1 PUFF INH DAILY Furosemide (Lasix) 40 Mg Tab 20 MG PO DAILY for 30 Days, #60 TAB 5 Refills TAKE LASIX 20 MG DAILY WITH 40 MG PO DAILY EVERY OTHER DAY Ipratropium-Albuterol (Duoneb) 3 Ml Nebu 3 ML INH QID PRN for SOB/Wheezing, INHA Ipratropium-Albuterol (Combivent Respimat) 1 Aer Aer 2 PUFFS INH QID PRN for SOB/Wheezing, INH Magnesium Oxide (Mg Supplement (Magnesium) 400 Mg Cap 400 MG PO DAILY Medroxyprogesterone Acetate (C (Depo-Provera Contraceptiv) 150 Mg/Ml Inj 1 DOSE IM [id number] Montelukast Sodium (Singulair) 10 Mg Tab 10 MG PO HS, TAB Potassium Ext Rel (Klor-Con) 20 Meq Tabcr 20 MEQ PO BID for 30 Days, #60 TAB 6 Refills Quetiapine Fumarate (Seroquel) 100 Mg Tab 100 MG PO HS Sertraline (Zoloft) 100 Mg Tab 50 MG PO DAILY, #30 Tizanidine (Zanaflex) 4 Mg Cap 4 MG PO TID PRN for PRN, CAP Zolpidem Tartrate (Ambien) 10 Mg Tab 10 MG PO HS, TAB Admission Information Physical Exam (per Admitting): DATE OF ADMISSION: 09/06/2016 CHIEF COMPLAINT: Abdominal pain. 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 The patient says since last 2 days, she was having abdominal pain, but today morning it got worse, very severe in nature, radiating to back associated with nausea and decided to come to the ER and found to have lipase to be elevated. She is requiring significant pain medications. Currently, pain is under control with pain medication and resting comfortably and hemodynamically stable. Says has some mild pain radiating into lower chest. Denies any shortness of breath, has some dry cough, thinks maybe she has some low-grade fever, no chills, no headaches, no blurred vision, no diarrhea. Normal bladder movements.RECENTLY HAD ALL TOOTH EXTRACTED SECONDARY TO RISK OF ENDOCARDITIS. ALLERGIES: DOXEPIN, SULFONYLUREAS, TRAMADOL. PAST MEDICAL HISTORY: As mentioned above. PAST SURGICAL HISTORY: Ablation of the heart for SVT, cardiac heart catheterizations, right and left heart catheterization for congenital anomalies, dilatation and curettage for cervical dysplasia, epicardial electrode insertions, status post pacemaker by thoracotomy, replacement pacemaker generator, laparoscopic cholecystectomy, stent insertion main pulmonary artery, reconstruction of ankle joint, ICD pocket revision, 1 lead extraction of the pacemaker, repair of the great vessel transposition in 1984, all tooth extraction. MEDICATIONS: The patient is on Tessalon Perles 2 capsules p.o. t.i.d. p.r.n. cough, Ambien 10 mg p.o. daily at bedtime, Zanaflex 4 mg p.o. every 8 hours p.r.n., Combivent 2 puffs 4 times daily as needed, Brio Ellipta 1 puff daily, montelukast 10 mg p.o. daily, metformin 500 mg p.o. b.i.d., Depo-Provera every 3 months injection, magnesium oxide 400 mg p.o. daily, Klonopin 1 mg p.o. t.i.d. p.r.n., Zoloft 50 mg p.o. daily, Nexium 40 mg p.o. daily, atorvastatin 10 mg p.o. daily, Seroquel 100 mg p.o. at bedtime, Lasix 40 mg one day and 20 mg next day, potassium chloride 40 mg p.o. daily, DuoNeb 3 mL via nebulization 4 times a day, aspirin 81 mg p.o. daily. FAMILY HISTORY: Significant for father had depression, asthma, diabetes. Mother had thyroid disorder, diabetes. Sister has arthritis, asthma, diabetes. SOCIAL HISTORY: Former smoker, quit in 2014, smoked half pack a day for 10 years. Alcohol occasional. No drug use. Currently lives with his family. REVIEW OF SYMPTOMS: As per HPI. Rest of review of symptoms negative. PHYSICAL EXAMINATION: GENERAL: The patient is of moderate build, not in distress. VITAL SIGNS: Temperature 36.4, pulse 75, respiratory rate 16, blood pressure 120/77, oxygen 96% room air. HEAD, EYES, EARS, NOSE, AND THROAT: No pallor, no icterus. Pupils equal, round, and reactive to light. NECK: No JVD, no neck masses, no carotid bruits. CARDIOVASCULAR: S1, S2 heard, regular rate and rhythm, no murmur, no gallop. RESPIRATORY SYSTEM: Clear to auscultation bilaterally. No wheezing, no crackles. ABDOMEN: Soft. Tenderness in the epigastric region, some mild guarding, no rigidity. No distention. CENTRAL NERVOUS SYSTEM: Cranial nerves II-XII grossly intact. Nonfocal. EXTREMITIES: No edema. LABORATORY DATA: WBC 10, hemoglobin 13.4, hematocrit 38.6, platelets 282. Sodium 138, potassium 2.8, chloride 104, bicarbonate 18, BUN 16, CO2 18, BUN 6, creatinine 0.9, serum glucose 210, calcium 8.9, total bilirubin 0.8, AST 47, ALT 50, alkaline phosphatase 131, total protein 37.8, lipase 7,709. PT 11.1, INR 1, ABG 25.4, pancreatic ulcer found, largely obscured pancreas. No biliary ductal dilatation, status post cholecystectomy. ASSESSMENT AND PLAN: This is a 30-year-old female who presents with pancreatitis. 1. This is a 30-year-old female with past medical history significant for congenital heart disease, status post repair, sinoatrial node dysfunction status post pacemaker, pulmonary artery stent placement and status post ablation for SVT, bipolar disorder, generalized anxiety disorder, history of tobacco abuse, history of diabetes type 2, history of prolonged QT interval, history of pancreatitis in the past secondary to gallstone status post cholecystectomy who presents with abdominal pain. 2. Abdominal pain and lipase elevated, most likely acute pancreatitis, though pancreatic ultrasound did not show any dilatation of the common bile duct and pancreas was obscured on imaging study, HAS history of pancreatitis secondary to gallstones in the past status post cholecystectomy. We cannot do MRCP secondary to pacemaker. We will do CT abdomen and pelvis with contrast, place her n.p.o. except meds and aggressive fluids, IV pain medications, IV antiemetics. Follow the lipase levels and consult GI for further recommendations. 3. History of right-sided heart failure, most likely secondary to her congenital heart disease. We will hold Lasix because of the pancreatitis, 4. Hypokalemia. We will replace the potassium. 5. Diabetes. The patient says recently all her tooth were because of her heart disease and risk of endocarditis. And since she is only eating a soft diet and not following her regular diet .will check HbA1c levels . insulin sliding scale for now and hold the metformin. 6. History of bipolar disorder and generalized anxiety disorder. The patient is on Zoloft, which we will continue. We will continue Klonopin, but patient says that she read seroquel can cause pancreatitis and she wanted to hold it, will hold the Seroquel for now. We will monitor. 7. History of prolonged QT interval. We will get an EKG and avoid QT prolonging drugs. 8. History of gastroesophageal reflux disease. Will place on IV Protonix for now. 9. History of hyperlipidemia. holding Lipitor. 10. Deep venous thrombosis prophylaxis. SCDs and heparin subQ. 11. Disposition. Admission to medical floor. Expect to discharge home and follow with family doctor. LEVEL 1 FULL CODE. 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 of SVT s/p ablation, sick sinus syndrome and paroxysmal atrial tachycardia s/p PPM, SVC stenosis s/p stenting, bipolar disorder, anxiety , DM2, tobacco use disorder, recurrent pancreatitis, hx. of cholecystectomy presents with abdominal pain Acute Pancreatitis 09/12 patient feels much better and tolerated her PO diet plan is to discharge patient home no narcotics to be given to the patient on discharge outpatient EUS and ERCP Follow-up with Dr. Grace on September 19 @ 12:30PM 09/11 patient continues to have some epigastric tenderness lipase trending down no MRIs can be performed due to pacemaker changed percocet to hydrocodone PRN q4 will keep IVFs the same as she may be fluid overloaded advance diet to low fat check CXR and BNP check lipids/triglycerides possible d/c home in AM 09/10 will continue clears for now; may need to advance diet slowly IVFs stopped IV dilaudid, use PRN percocet for pain antiemetics PRN 09/09 Lipase was elevated on presentation Abdominal CT Moderate peripancreatic infiltration and fluid consistent with acute pancreatitis. No evidence of pancreatic necrosis. No peripancreatic fluid collections. possibly secondary to EtOH use? conservative management - was NPO, now advanced to clears, IVFs, analgesics, anti-emetics as needed stopped IV Dilaudid - avoid narcotics when able Noted nursing note with boyfriend stating that she comes to [facility] to obtain narcotics for pain - Percocet q6 hours PRN lipase down to ~ 400 recheck lipase in AM, advance diet as tolerated Possible Alcohol Withdrawal patient with tremulousness, anxiety intermittent tachycardia go home with home Klonopin dose Anxiety/Depression/Bipolar Disorder continue home medications Hypokalemia replace K, recheck in AM Likely Narcotic Dependence as per boyfriend, patient "shops" around hospitals to get IV narcotics will d/c IV dilaudid, continue percocet for pancreatitis pancreatitis about resolved, recheck lipase in AM, but will d/c back to home medications and no new medications will be prescribed DVT ppx SCDs FULL CODE Total time spent on discharge = 40 minutes This includes examination of the patient, discharge planning, medication reconciliation, and communication with other providers. Discharge Instructions Please follow-up with Dr. Grace on September 19 @ 12:30PM You should have your blood work rechecked for potassium You will be discharged on metformin 1000mg twice daily
== END 2016-09-12 17:00 | disposition home or self-care (01) | DRG 439 ==
LOC: ENRESERVDT → ENRESERVTM → C.EDB 08:24 → C.MS2W 12:10 → C.MED 09-08 00:56
PROVIDERS: ADMIT Hospitalist; ATTEND Family Medicine
DX: K85.90 Acute pancreatitis without necrosis or infection, unspecified (principal); F11.20 Opioid dependence, uncomplicated; E87.6 Hypokalemia; Z90.49 Acquired absence of other specified parts of digestive tract; Z95.0 Presence of cardiac pacemaker; Z79.82 Long term (current) use of aspirin; F41.9 Anxiety disorder, unspecified; J45.909 Unspecified asthma, uncomplicated; F31.9 Bipolar disorder, unspecified; K21.9 Gastro-esophageal reflux disease without esophagitis; E11.9 Type 2 diabetes mellitus without complications; Z87.440 Personal history of urinary (tract) infections; Z86.711 Personal history of pulmonary embolism; I10 Essential (primary) hypertension; Z87.442 Personal history of urinary calculi; Z87.01 Personal history of pneumonia (recurrent); Z83.3 Family history of diabetes mellitus; Z82.49 Family history of ischemic heart disease and other diseases of the circulatory system; Z79.899 Other long term (current) drug therapy; Z87.74 Personal history of (corrected) congenital malformations of heart and circulatory system; Z82.5 Family history of asthma and other chronic lower respiratory diseases; Z87.891 Personal history of nicotine dependence